=== PATIENT | male | born 1945 | race Caucasian/White ===

== ENCOUNTER 2017-10-29 09:14 | Emergency (ER) | payer OTHER ==
[~2017-10-29] VITALS: Ht 170.2 cm; Wt 82.0 kg
[~2017-10-29 09:14] MED LIST: ACET-1600 PO; ACET-1757 PO; ACET325T14 PO; ACIDOPHILUS PROB1 MG PO; ALLO100T30 PO; ALLO300T PO; AMOX1TAB61 PO; ATOR20TA9 PO; CEFD300C37 PO; CEFU500T PO; CELE200C PO; CIPR500T3 PO; CITA10TA8 PO; CITA20TA5 PO; COLC0.6T37 PO; CYAN1TAB29 PO; FAMO-79 PO; FAMO20TA7 PO; FERR160T5 PO; FERR325T18 PO; FINA5TAB4 PO; FURO-93 PO; FURO40TA6 PO; GABA300C10 PO; GABA600T PO; GABA600T2 PO; GLUC1CAP18 PO; HYDR-3240 PO; LEVO150T5 PO; LEVO50TA5 PO; LEVO750T26 PO; LEVO75TA5 PO; LEVOTHYROXINE PO; LISI1TAB7 PO; MAGN64TA9 PO; METH1TAB21 PO; METH4TAB2 PO; METR500T PO; NAPR220C2 PO; ONDA4TAB10 PO; OXYC10TA6 PO; OXYC5CAP2 PO; PANT40TA5 PO; PRAM0.12 PO; PRED10TA PO; PRED2.5T PO; PRED20TA PO; PRED5TAB PO; SENN1TAB7 PO; SODI650T PO; SULF1TAB23 PO; TAMO20TA PO; TAMS-11 PO; TAMS0.4C2 PO; WARF2TAB7 PO; Will bring list DOS
[2017-10-29] MEDS ORDERED: ONDANSETRON 2MG/ML, 2ML IVPush ONE (10:30)
[2017-10-29] MEDS ORDERED: HYDROmorphone 1 MG/ML, 1ML IVPush PRN (10:30)
[2017-10-29] MEDS ORDERED: ONDANSETRON 2MG/ML, 2ML ONE (10:30)
[2017-10-29] MEDS ORDERED: LORazepam 2 MG/ML, 1ML IVPush PRN (10:30)
[2017-10-29] MEDS ORDERED: HYDROmorphone 1 MG/ML, 1ML ONE (10:30)
[2017-10-29] MEDS ORDERED: LORazepam 2 MG/ML, 1ML ONE (10:30)
[2017-10-29 14:28] VITALS: BP 132/65
== END 2017-10-29 15:17 | disposition home or self-care (01) ==
LOC: ED 14:20
DX: M54.16 Radiculopathy, lumbar region (principal); M25.551 Pain in right hip; E78.00 Pure hypercholesterolemia, unspecified; M19.90 Unspecified osteoarthritis, unspecified site; N19 Unspecified kidney failure; E07.9 Disorder of thyroid, unspecified; Z86.718 Personal history of other venous thrombosis and embolism
CPT/HCPCS: 72148; 73552; 96374; 96375; 99284; J1170; J2060; J2405

== ENCOUNTER 2018-05-20 13:03 | Inpatient (IN) | payer OTHER ==
[~2018-05-20] VITALS: Ht 170.2 cm; Wt 89.2 kg
[~2018-05-20 13:03] MED LIST changes: -CITA20TA5 PO; +CITA20TA6 PO; -MAGN64TA9 PO; +MAGNESIUM DR64 MG PO; -WARF2TAB7 PO; +WARF2TAB99 PO
[2018-05-20] MEDS ORDERED: SODIUM CHLORIDE FLUSH 10ML SYR IVF ONE (13:30)
[2018-05-20 14:04] LABS: BASOPHILS # (AUTO) 0.05 x10^3/uL (0-0.1); BASOPHILS % (AUTO) 1 % (0-1); EOSINOPHILS # (AUTO) 0.03 x10^3/uL (0-0.4); EOSINOPHILS % (AUTO) 0 % (1-7); LYMPHOCYTES # (AUTO) 1.46 x10^3/uL (1-3.4); LYMPHOCYTES % (AUTO) 14 % (22-44); MD NO; MEAN CORPUSCULAR HEMOGLOBIN 32.5 pg (27.5-34.5); MEAN CORPUSCULAR HGB CONC 33.5 g/dL (33.2-36.2); MEAN CORPUSCULAR VOLUME 96.8 fL (81-97); MEAN PLATELET VOLUME 9.5 fL (7.4-10.4); MONOCYTES % (AUTO) 8 % (2-9); NEUTROPHILS % (AUTO) 77 % (42-75); PLATELET COUNT 160 x10^3/uL (130-400); RED BLOOD COUNT 3.24 x10^6/uL (4.38-5.82); RED CELL DISTRIBUTION WIDTH 14.3 % (9.4-14.8)
[2018-05-20 14:08] LABS: INTERNATIONAL NORMALIZED RATIO 1.04 (0.93-1.1); PROTHROMBIN TIME 10.7 Seconds (9.6-11.5)
[2018-05-20 14:13] LABS: ALANINE AMINOTRANSFERASE 19 U/L (12-78); ALBUMIN 2.8 g/dL (3.4-5.0); ANION GAP 7 mmol/L (5-15); CALCIUM 8.6 mg/dL (8.5-10.1); CHLORIDE 107 mmol/L (98-107)
[2018-05-20 14:18] LABS: ALKALINE PHOSPHATASE 52 U/L (45-117); BILIRUBIN,TOTAL 0.8 mg/dL (0.2-1.0); CREATININE 1.88 mg/dL (0.7-1.3); TOTAL PROTEIN 5.9 g/dL (6.4-8.2); TROPONIN I < 0.015 ng/mL (0.000-0.045)
[2018-05-20] MEDS ORDERED: MAALOX/HYOSCYAMINE/LIDOCAINE 45 ML BTL PO ONE (14:30)
[2018-05-20] MEDS ORDERED: FERR-51 PO (15:08)
[2018-05-20] MEDS ORDERED: PRAMIPEXOLE PO (15:08)
[2018-05-20] MEDS ORDERED: CITA40TA12 PO (15:08)
[2018-05-20] MEDS ORDERED: LEVO75TA PO (15:08)
[2018-05-20] MEDS ORDERED: ASPI-515 PO (15:08)
[2018-05-20] MEDS ORDERED: FLUD0.1T PO ×2 (15:08)
[2018-05-20] MEDS ORDERED: oxycodone PO (15:08)
[2018-05-20] MEDS ORDERED: MULT-717 PO (15:08)
[2018-05-20] MEDS ORDERED: METHENAM HIP PO (15:08)
[2018-05-20] MEDS ORDERED: vitamin d3 PO (15:10)
[2018-05-20] MEDS ORDERED: senna PO (15:10)
[2018-05-20] MEDS ORDERED: CYAN250013 PO (15:10)
[2018-05-20] MEDS ORDERED: NITROGLYCERIN 0.4 MG BOTTLE (25 TABS) SL PRN (15:30)
[2018-05-20] MEDS ORDERED: ASPIRIN 81 MG TABLET CHEW PO ONE (15:30)
[2018-05-20] MEDS ORDERED: morphine SULFATE 10 MG/ML, 1ML IVPush PRN (15:30)
[2018-05-20] MEDS ORDERED: ONDANSETRON 2MG/ML, 2ML IVPush PRN (15:30)
[2018-05-20 15:45] VITALS: BP 119/67
[2018-05-20 15:51] LABS: HIGH-SENSITIVITY CRP 4.9 mg/dL (0.02-0.30); THYROID STIMULATING HORMONE 1.51 mIU/L (0.358-3.740)
[2018-05-20 16:02] LABS: HCT (SEDRATE) 31.3 % (39.2-51.8)
[2018-05-20 16:47] LABS: TROPONIN I < 0.015 ng/mL (0.000-0.045)
[2018-05-20] MEDS ORDERED: LORazepam 2 MG/ML, 1ML IVPush PRN (18:00)
[2018-05-20] MEDS: HEPARIN 5,000 UNITS/ML, 1ML SQ SCH (20:00)
[2018-05-20] MEDS: ATORVASTATIN 80 MG TABLET PO SCH (20:00)
[2018-05-20] MEDS: FLUDROCORTISONE 0.1 MG TABLET PO SCH (20:01)
[2018-05-20] MEDS: PRAMIPEXOLE 0.125MG TABLET PO SCH (20:02)
[2018-05-20] MEDS: LEVOTHYROXINE 75 MCG TABLET PO SCH (20:02)
[2018-05-20] MEDS: GABAPENTIN 300 MG CAPSULE PO SCH (20:02)
[2018-05-20 20:05] VITALS: BP 132/72
[2018-05-20] MEDS ORDERED: ACETAMINOPHEN 325 MG TABLET PO ONE (21:30)
[2018-05-20 23:11] LABS: TROPONIN I < 0.015 ng/mL (0.000-0.045)
[2018-05-21 01:15] VITALS: BP 121/65
[2018-05-21 03:23] LABS: TROPONIN I < 0.015 ng/mL (0.000-0.045)
[2018-05-21] MEDS: HEPARIN 5,000 UNITS/ML, 1ML SQ SCH ×3 (04:07→20:13)
[2018-05-21 05:19] LABS: BASOPHILS # (AUTO) 0.01 x10^3/uL (0-0.1); BASOPHILS % (AUTO) 0 % (0-1); EOSINOPHILS # (AUTO) 0.01 x10^3/uL (0-0.4); EOSINOPHILS % (AUTO) 0 % (1-7); LYMPHOCYTES # (AUTO) 0.74 x10^3/uL (1-3.4); LYMPHOCYTES % (AUTO) 10 % (22-44); MD NO; MEAN CORPUSCULAR HEMOGLOBIN 32.2 pg (27.5-34.5); MEAN CORPUSCULAR VOLUME 97.4 fL (81-97); MEAN PLATELET VOLUME 10.1 fL (7.4-10.4); MONOCYTES # (AUTO) 0.08 x10^3/uL (0.2-0.8); MONOCYTES % (AUTO) 1 % (2-9); NEUTROPHILS # (AUTO) 6.46 x10^3/uL (1.8-6.8); NEUTROPHILS % (AUTO) 89 % (42-75); PLATELET COUNT 148 x10^3/uL (130-400); RED BLOOD COUNT 3.34 x10^6/uL (4.38-5.82); RED CELL DISTRIBUTION WIDTH 14.4 % (9.4-14.8)
[2018-05-21 05:32] LABS: CHLORIDE 108 mmol/L (98-107)
[2018-05-21 05:46] LABS: ALANINE AMINOTRANSFERASE 19 U/L (12-78); ALKALINE PHOSPHATASE 46 U/L (45-117); ANION GAP 7 mmol/L (5-15); BILIRUBIN,TOTAL 1.3 mg/dL (0.2-1.0); CALCIUM 8.7 mg/dL (8.5-10.1); CREATININE 1.62 mg/dL (0.7-1.3); THYROID STIMULATING HORMONE 0.791 mIU/L (0.358-3.740); TOTAL PROTEIN 6.4 g/dL (6.4-8.2)
[2018-05-21 07:27] VITALS: BP 138/71
[2018-05-21] MEDS: PANTOPROZOLE 40MG TABLET PO SCH (09:14)
[2018-05-21] MEDS: CITALOPRAM 20 MG TABLET PO SCH (09:15)
[2018-05-21] MEDS: ASPIRIN 81 MG TABLET EC PO SCH (09:15)
[2018-05-21] MEDS: FERROUS SULFATE 325 MG TABLET PO SCH (09:16)
[2018-05-21] MEDS: OXYcodone IR 5MG TABLET PO SCH (09:16)
[2018-05-21] MEDS: MULTIVITAMINS/MINERALS TABLET PO SCH (09:16)
[2018-05-21] MEDS: ALLOPURINOL 300 MG TABLET PO SCH (09:17)
[2018-05-21] MEDS: CYANOCOBALAMIN 1,000 MCG TABLET PO SCH (09:18)
[2018-05-21 13:08] VITALS: BP 135/69
[2018-05-21 13:38] LABS: MICROSCOPIC AUTO
[2018-05-21 13:41] LABS: CULTURE INDICATED? YES
[2018-05-21 18:55] VITALS: BP 131/71
[2018-05-21] MEDS: PRAMIPEXOLE 0.125MG TABLET PO SCH (20:13)
[2018-05-21] MEDS: LEVOTHYROXINE 75 MCG TABLET PO SCH (20:13)
[2018-05-21] MEDS: ATORVASTATIN 80 MG TABLET PO SCH (20:14)
[2018-05-21] MEDS: FLUDROCORTISONE 0.1 MG TABLET PO SCH (20:14)
[2018-05-21] MEDS: SULFAMETH./TRIMETHOPRIM DS 800MG/160MG TABLET PO SCH (20:14)
[2018-05-21] MEDS: GABAPENTIN 300 MG CAPSULE PO SCH (20:15)
[2018-05-21] MEDS ORDERED: DIPHENHYDRAMINE 25 MG CAPSULE PO ONE (20:30)
[2018-05-22 01:10] VITALS: BP 127/70
[2018-05-22] MEDS: HEPARIN 5,000 UNITS/ML, 1ML SQ SCH ×2 (04:05→11:30)
[2018-05-22 05:14] LABS: ANION GAP 8 mmol/L (5-15); CALCIUM 8.7 mg/dL (8.5-10.1); CHLORIDE 108 mmol/L (98-107); CREATININE 1.59 mg/dL (0.7-1.3)
[2018-05-22 06:55] VITALS: BP 147/88
[2018-05-22] MEDS: SULFAMETH./TRIMETHOPRIM DS 800MG/160MG TABLET PO SCH (08:48)
[2018-05-22] MEDS: CYANOCOBALAMIN 1,000 MCG TABLET PO SCH (08:48)
[2018-05-22] MEDS: PANTOPROZOLE 40MG TABLET PO SCH (08:49)
[2018-05-22] MEDS: FERROUS SULFATE 325 MG TABLET PO SCH (08:49)
[2018-05-22] MEDS: ASPIRIN 81 MG TABLET EC PO SCH (08:50)
[2018-05-22] MEDS: OXYcodone IR 5MG TABLET PO SCH (08:50)
[2018-05-22] MEDS: ALLOPURINOL 300 MG TABLET PO SCH (08:51)
[2018-05-22] MEDS: MULTIVITAMINS/MINERALS TABLET PO SCH (08:51)
[2018-05-22] MEDS: CITALOPRAM 20 MG TABLET PO SCH (08:53)
[2018-05-22] MEDS ORDERED: PRED10TA PO (10:27)
[2018-05-22] MEDS ORDERED: SULF1TAB24 PO (14:11)
== END 2018-05-22 11:50 | disposition home or self-care (01) | DRG 314 ==
LOC: ED 13:42 → EDIP 14:25 → 5SO 15:34 → DCLOUNGE 05-22 11:30
PROVIDERS: ADMIT Hospitalist; ATTEND Hospitalist
DX: I31.9 Disease of pericardium, unspecified (principal); N17.0 Acute kidney failure with tubular necrosis; E44.1 Mild protein-calorie malnutrition; N39.0 Urinary tract infection, site not specified; Q60.0 Renal agenesis, unilateral; R07.89 Other chest pain; I12.9 Hypertensive chronic kidney disease with stage 1 through stage 4 chronic kidney disease, or unspecified chronic kidney disease; N18.3 Chronic kidney disease, stage 3 (moderate); K21.9 Gastro-esophageal reflux disease without esophagitis; G25.81 Restless legs syndrome; E03.9 Hypothyroidism, unspecified; E66.9 Obesity, unspecified; E78.00 Pure hypercholesterolemia, unspecified; M19.90 Unspecified osteoarthritis, unspecified site; N40.0 Benign prostatic hyperplasia without lower urinary tract symptoms; Z79.82 Long term (current) use of aspirin; Z79.899 Other long term (current) drug therapy; Z82.49 Family history of ischemic heart disease and other diseases of the circulatory system; Z85.3 Personal history of malignant neoplasm of breast; Z86.718 Personal history of other venous thrombosis and embolism; Z86.73 Personal history of transient ischemic attack (TIA), and cerebral infarction without residual deficits; Z87.891 Personal history of nicotine dependence; Z90.10 Acquired absence of unspecified breast and nipple; G89.29 Other chronic pain; F32.9 Major depressive disorder, single episode, unspecified; D64.9 Anemia, unspecified; Z68.30 Body mass index [BMI] 30.0-30.9, adult
CPT/HCPCS: 36415; 71045; 78582; 80048; 80053; 81001; 83880; 84443; 84484; 85025; 85379; 85610; 85651; 86141; 87040; 87070; 87077; 87086; 87147; 87186; 87205; 93005; 93306; 93970; 99285; J1644; A9540; A9558; C9898; J7512; Q0163

== ENCOUNTER 2018-06-17 08:41 | Inpatient (IN) | payer OTHER ==
[~2018-06-17] VITALS: Ht 167.6 cm; Wt 98.5 kg
[~2018-06-17 08:41] MED LIST changes: +ASPI-515 PO; +CITA40TA12 PO; +CYAN250013 PO; +FERR-51 PO; +FLUD0.1T PO; +LEVO75TA PO; +METHENAM HIP PO; +MULT-717 PO; +PRAMIPEXOLE PO; +SULF1TAB24 PO; +oxycodone PO; +senna PO; +vitamin d3 PO
[2018-06-17] MEDS ORDERED: ACETAMINOPHEN 500 MG TABLET PO ONE (09:30)
[2018-06-17] MEDS ORDERED: SODIUM CHLORIDE 0.9% 1,000ML IVBOLUS ONE ×3 (09:30→11:00)
[2018-06-17] MEDS ORDERED: SODIUM CHLORIDE FLUSH 10ML SYR IVF ONE (09:30)
[2018-06-17] MEDS ORDERED: ACETAMINOPHEN 500 MG TABLET ONE ×2 (09:35)
[2018-06-17 09:40] LABS: BASOPHILS # (AUTO) 0.08 x10^3/uL (0-0.1); BASOPHILS % (AUTO) 1 % (0-1); EOSINOPHILS % (AUTO) 0 % (1-7); LYMPHOCYTES # (AUTO) 1.37 x10^3/uL (1-3.4); LYMPHOCYTES % (AUTO) 11 % (22-44); MD NO; MEAN CORPUSCULAR HEMOGLOBIN 32.2 pg (27.5-34.5); MEAN CORPUSCULAR HGB CONC 33.4 g/dL (33.2-36.2); MEAN CORPUSCULAR VOLUME 96.4 fL (81-97); MEAN PLATELET VOLUME 9.5 fL (7.4-10.4); MONOCYTES # (AUTO) 0.98 x10^3/uL (0.2-0.8); MONOCYTES % (AUTO) 8 % (2-9); NEUTROPHILS # (AUTO) 9.57 x10^3/uL (1.8-6.8); NEUTROPHILS % (AUTO) 80 % (42-75); PLATELET COUNT 122 x10^3/uL (130-400); RED BLOOD COUNT 3.47 x10^6/uL (4.38-5.82); RED CELL DISTRIBUTION WIDTH 15.3 % (9.4-14.8)
[2018-06-17 09:48] LABS: ANION GAP 8 mmol/L (5-15); CALCIUM 8.7 mg/dL (8.5-10.1); CHLORIDE 106 mmol/L (98-107)
[2018-06-17 09:51] LABS: ALANINE AMINOTRANSFERASE 26 U/L (12-78); ALKALINE PHOSPHATASE 43 U/L (45-117); BILIRUBIN,TOTAL 0.9 mg/dL (0.2-1.0); CREATININE 2.81 mg/dL (0.7-1.3); INTERNATIONAL NORMALIZED RATIO 1.03 (0.93-1.1); PROTHROMBIN TIME 10.7 Seconds (9.6-11.5)
[2018-06-17 10:28] LABS: MICROSCOPIC AUTO
[2018-06-17 10:36] LABS: CULTURE INDICATED? YES
[2018-06-17] MEDS ORDERED: CEFTRIAXONE 2 GM in SODIUM CHLORIDE 0.9% 50 ML IV SCH (11:00)
[2018-06-17] MEDS ORDERED: CEFTRIAXONE PMX 2GM/50ML 50 ML ONE (11:03)
[2018-06-17] MEDS ORDERED: NOREPINEPHRINE 4 MG in SODIUM CHLORIDE 0.9% 246 ML IV PRN ×2 (11:30→13:30)
[2018-06-17] MEDS ORDERED: ALLO300T PO (11:50)
[2018-06-17] MEDS ORDERED: GABA300C10 PO (11:50)
[2018-06-17] MEDS ORDERED: CITA40TA5 PO (11:50)
[2018-06-17 11:56] LABS: TROPONIN I 0.147 ng/mL (0.000-0.045)
[2018-06-17] MEDS ORDERED: BISACODYL 10 MG SUPP PR PRN (12:00)
[2018-06-17] MEDS: FAMOTIDINE 20 MG TABLET PO SCH (12:00)
[2018-06-17] MEDS ORDERED: DOCUSATE 100 MG CAPSULE PO PRN (12:00)
[2018-06-17] MEDS ORDERED: POLYETHYLENE GLYCOL 17 GM PACKET PO PRN (12:00)
[2018-06-17] MEDS: MULTIVITAMINS/MINERALS TABLET PO SCH (12:30)
[2018-06-17] MEDS: FLUDROCORTISONE 0.1 MG TABLET PO SCH ×2 (12:30→20:55)
[2018-06-17] MEDS: SODIUM CHLORIDE 0.9% 1,000 ML IV SCH ×2 (12:40→23:51)
[2018-06-17] MEDS: FERROUS SULFATE 325 MG TABLET PO SCH (13:00)
[2018-06-17] MEDS ORDERED: VASOPRESSIN 100 UNIT in SODIUM CHLORIDE 0.9% 495 ML IV PRN (13:30)
[2018-06-17] MEDS: HEPARIN 5,000 UNITS/ML, 1ML SQ SCH ×2 (15:00→20:56)
[2018-06-17] MEDS: ASPIRIN 81 MG TABLET EC PO SCH (15:02)
[2018-06-17 15:15] LABS: TROPONIN I 0.299 ng/mL (0.000-0.045)
[2018-06-17] MEDS: PRAMIPEXOLE 0.125MG TABLET PO SCH (20:55)
[2018-06-17] MEDS: GABAPENTIN 300 MG CAPSULE PO SCH (20:56)
[2018-06-17] MEDS: ATORVASTATIN 20 MG TABLET PO SCH (20:56)
[2018-06-17] MEDS: LEVOTHYROXINE 75 MCG TABLET PO SCH (20:56)
[2018-06-17 21:10] LABS: TROPONIN I 0.237 ng/mL (0.000-0.045)
[2018-06-17] MEDS: CEFTRIAXONE 2 GM in SODIUM CHLORIDE 0.9% 50 ML IV SCH (23:51)
[2018-06-18] MEDS: ACETAMINOPHEN 325 MG TABLET PO PRN ×2 (01:39→08:09)
[2018-06-18 03:05] LABS: MEAN CORPUSCULAR HEMOGLOBIN 32.8 pg (27.5-34.5); MEAN CORPUSCULAR HGB CONC 34.1 g/dL (33.2-36.2); MEAN CORPUSCULAR VOLUME 96.3 fL (81-97); RED BLOOD COUNT 2.86 x10^6/uL (4.38-5.82); RED CELL DISTRIBUTION WIDTH 15.3 % (9.4-14.8)
[2018-06-18 03:16] LABS: ALANINE AMINOTRANSFERASE 44 U/L (12-78); ALBUMIN 2.3 g/dL (3.4-5.0); ANION GAP 7 mmol/L (5-15); CALCIUM 8.1 mg/dL (8.5-10.1); CHLORIDE 113 mmol/L (98-107); CREATININE 2.16 mg/dL (0.7-1.3); TROPONIN I 0.302 ng/mL (0.000-0.045)
[2018-06-18 03:18] LABS: ALKALINE PHOSPHATASE 34 U/L (45-117); BILIRUBIN,TOTAL 0.5 mg/dL (0.2-1.0); TOTAL PROTEIN 5.2 g/dL (6.4-8.2)
[2018-06-18 03:34] LABS: BASOPHILS # (AUTO) 0.02 x10^3/uL (0-0.1); BASOPHILS % (AUTO) 0 % (0-1); EOSINOPHILS # (AUTO) 0.01 x10^3/uL (0-0.4); EOSINOPHILS % (AUTO) 0 % (1-7); LYMPHOCYTES # (AUTO) 1.11 x10^3/uL (1-3.4); LYMPHOCYTES % (AUTO) 14 % (22-44); MD SCAN; MEAN PLATELET VOLUME 10.3 fL (7.4-10.4); MONOCYTES # (AUTO) 0.54 x10^3/uL (0.2-0.8); MONOCYTES % (AUTO) 7 % (2-9); NEUTROPHILS # (AUTO) 6.31 x10^3/uL (1.8-6.8); NEUTROPHILS % (AUTO) 79 % (42-75); PLATELET COUNT 95 x10^3/uL (130-400)
[2018-06-18] MEDS ORDERED: SODIUM PHOSPHATE 20 MMOL in SODIUM CHLORIDE 0.9% 500 ML IV ONE (05:30)
[2018-06-18] MEDS: HEPARIN 5,000 UNITS/ML, 1ML SQ SCH ×3 (05:34→20:21)
[2018-06-18 08:00] VITALS: BP 125/60
[2018-06-18] MEDS: FLUDROCORTISONE 0.1 MG TABLET PO SCH ×2 (08:04→20:22)
[2018-06-18] MEDS: MULTIVITAMINS/MINERALS TABLET PO SCH (08:04)
[2018-06-18] MEDS: FAMOTIDINE 20 MG TABLET PO SCH (08:05)
[2018-06-18] MEDS: FERROUS SULFATE 325 MG TABLET PO SCH (08:05)
[2018-06-18] MEDS: CITALOPRAM 20 MG TABLET PO SCH (08:05)
[2018-06-18] MEDS: ASPIRIN 81 MG TABLET EC PO SCH (08:05)
[2018-06-18] MEDS: CYANOCOBALAMIN 1,000 MCG TABLET PO SCH (08:05)
[2018-06-18] MEDS: SODIUM CHLORIDE 0.9% 1,000 ML IV SCH ×2 (08:07→17:52)
[2018-06-18] MEDS: OXYcodone IR 5MG TABLET PO PRN ×2 (09:01→20:22)
[2018-06-18 14:00] VITALS: BP 127/56
[2018-06-18 16:23] VITALS: BP 113/61
[2018-06-18 19:37] VITALS: BP 122/65
[2018-06-18] MEDS: ATORVASTATIN 20 MG TABLET PO SCH (20:22)
[2018-06-18] MEDS: GABAPENTIN 300 MG CAPSULE PO SCH (20:22)
[2018-06-18] MEDS: PRAMIPEXOLE 0.125MG TABLET PO SCH (20:22)
[2018-06-18] MEDS: LEVOTHYROXINE 75 MCG TABLET PO SCH (20:22)
[2018-06-18] MEDS: CEFTRIAXONE 2 GM in SODIUM CHLORIDE 0.9% 50 ML IV SCH (23:09)
[2018-06-19 01:29] VITALS: BP 120/61
[2018-06-19] MEDS: SODIUM CHLORIDE 0.9% 1,000 ML IV SCH ×2 (03:17→20:11)
[2018-06-19] MEDS: HEPARIN 5,000 UNITS/ML, 1ML SQ SCH ×3 (03:21→20:12)
[2018-06-19 05:09] LABS: BASOPHILS # (AUTO) 0.03 x10^3/uL (0-0.1); BASOPHILS % (AUTO) 0 % (0-1); EOSINOPHILS # (AUTO) 0.04 x10^3/uL (0-0.4); EOSINOPHILS % (AUTO) 1 % (1-7); LYMPHOCYTES # (AUTO) 1.32 x10^3/uL (1-3.4); LYMPHOCYTES % (AUTO) 17 % (22-44); MD NO; MEAN CORPUSCULAR HGB CONC 34.1 g/dL (33.2-36.2); MEAN CORPUSCULAR VOLUME 96.7 fL (81-97); MEAN PLATELET VOLUME 10.1 fL (7.4-10.4); MONOCYTES # (AUTO) 0.52 x10^3/uL (0.2-0.8); MONOCYTES % (AUTO) 7 % (2-9); NEUTROPHILS # (AUTO) 5.79 x10^3/uL (1.8-6.8); NEUTROPHILS % (AUTO) 75 % (42-75); PLATELET COUNT 110 x10^3/uL (130-400); RED CELL DISTRIBUTION WIDTH 15.3 % (9.4-14.8)
[2018-06-19 05:19] LABS: CHLORIDE 114 mmol/L (98-107)
[2018-06-19 05:26] LABS: ALANINE AMINOTRANSFERASE 31 U/L (12-78); ALBUMIN 2.2 g/dL (3.4-5.0); ALKALINE PHOSPHATASE 34 U/L (45-117); ANION GAP 8 mmol/L (5-15); BILIRUBIN,TOTAL 0.6 mg/dL (0.2-1.0); CALCIUM 8.1 mg/dL (8.5-10.1); CREATININE 1.47 mg/dL (0.7-1.3); TOTAL PROTEIN 5.4 g/dL (6.4-8.2)
[2018-06-19 07:45] VITALS: BP 164/73
[2018-06-19] MEDS: CITALOPRAM 20 MG TABLET PO SCH (09:18)
[2018-06-19] MEDS ORDERED: REGADENOSON 0.4 MG/5 ML SYRINGE ONE (11:22)
[2018-06-19] MEDS: OXYcodone IR 5MG TABLET PO PRN (12:15)
[2018-06-19] MEDS: CYANOCOBALAMIN 1,000 MCG TABLET PO SCH (12:16)
[2018-06-19] MEDS: ASPIRIN 81 MG TABLET EC PO SCH (12:16)
[2018-06-19] MEDS: MULTIVITAMINS/MINERALS TABLET PO SCH (12:16)
[2018-06-19] MEDS: FERROUS SULFATE 325 MG TABLET PO SCH (12:16)
[2018-06-19] MEDS: FAMOTIDINE 20 MG TABLET PO SCH (12:16)
[2018-06-19 13:00] VITALS: BP 126/66
[2018-06-19] MEDS: FLUDROCORTISONE 0.1 MG TABLET PO SCH ×2 (14:25→20:12)
[2018-06-19] MEDS: ACETAMINOPHEN 325 MG TABLET PO PRN ×2 (14:25→23:02)
[2018-06-19 19:20] VITALS: BP 132/55
[2018-06-19] MEDS: ATORVASTATIN 20 MG TABLET PO SCH (20:12)
[2018-06-19] MEDS: PRAMIPEXOLE 0.125MG TABLET PO SCH (20:12)
[2018-06-19] MEDS: GABAPENTIN 300 MG CAPSULE PO SCH (20:12)
[2018-06-19] MEDS: LEVOTHYROXINE 75 MCG TABLET PO SCH (20:13)
[2018-06-19] MEDS: CEFTRIAXONE 2 GM in SODIUM CHLORIDE 0.9% 50 ML IV SCH (23:02)
[2018-06-20 00:24] VITALS: BP 115/55
[2018-06-20] MEDS: OXYcodone IR 5MG TABLET PO PRN ×3 (01:23→20:59)
[2018-06-20] MEDS: HEPARIN 5,000 UNITS/ML, 1ML SQ SCH ×3 (04:13→20:58)
[2018-06-20 05:31] LABS: BASOPHILS # (AUTO) 0.01 x10^3/uL (0-0.1); BASOPHILS % (AUTO) 0 % (0-1); EOSINOPHILS # (AUTO) 0.05 x10^3/uL (0-0.4); EOSINOPHILS % (AUTO) 1 % (1-7); LYMPHOCYTES # (AUTO) 1.21 x10^3/uL (1-3.4); LYMPHOCYTES % (AUTO) 23 % (22-44); MD NO; MEAN CORPUSCULAR HEMOGLOBIN 31.6 pg (27.5-34.5); MEAN CORPUSCULAR VOLUME 95.8 fL (81-97); MONOCYTES # (AUTO) 0.37 x10^3/uL (0.2-0.8); MONOCYTES % (AUTO) 7 % (2-9); NEUTROPHILS % (AUTO) 69 % (42-75); PLATELET COUNT 125 x10^3/uL (130-400); RED BLOOD COUNT 2.88 x10^6/uL (4.38-5.82); RED CELL DISTRIBUTION WIDTH 15.3 % (9.4-14.8)
[2018-06-20 05:35] LABS: ANION GAP 10 mmol/L (5-15); CHLORIDE 114 mmol/L (98-107)
[2018-06-20 05:36] LABS: CREATININE 1.16 mg/dL (0.7-1.3)
[2018-06-20 07:00] VITALS: BP 166/68
[2018-06-20] MEDS: SODIUM CHLORIDE 0.9% 1,000 ML IV SCH ×2 (07:13→17:00)
[2018-06-20] MEDS: ASPIRIN 81 MG TABLET EC PO SCH (09:07)
[2018-06-20] MEDS: MULTIVITAMINS/MINERALS TABLET PO SCH (09:07)
[2018-06-20] MEDS: FAMOTIDINE 20 MG TABLET PO SCH ×3 (09:07→20:59)
[2018-06-20] MEDS: CITALOPRAM 20 MG TABLET PO SCH (09:08)
[2018-06-20] MEDS: CYANOCOBALAMIN 1,000 MCG TABLET PO SCH (09:08)
[2018-06-20] MEDS: FERROUS SULFATE 325 MG TABLET PO SCH (09:08)
[2018-06-20] MEDS: ACETAMINOPHEN 325 MG TABLET PO PRN ×2 (09:15→21:01)
[2018-06-20] MEDS: FLUDROCORTISONE 0.1 MG TABLET PO SCH ×2 (09:15→20:58)
[2018-06-20 14:42] VITALS: BP 154/71
[2018-06-20 20:00] VITALS: BP 134/70
[2018-06-20] MEDS: PRAMIPEXOLE 0.125MG TABLET PO SCH (20:58)
[2018-06-20] MEDS: GABAPENTIN 300 MG CAPSULE PO SCH (20:59)
[2018-06-20] MEDS: ATORVASTATIN 20 MG TABLET PO SCH (20:59)
[2018-06-20] MEDS: CEFTRIAXONE 2 GM in SODIUM CHLORIDE 0.9% 50 ML IV SCH (23:19)
[2018-06-21 00:58] VITALS: BP 130/53
[2018-06-21 05:25] LABS: BASOPHILS # (AUTO) 0.02 x10^3/uL (0-0.1); BASOPHILS % (AUTO) 0 % (0-1); EOSINOPHILS # (AUTO) 0.21 x10^3/uL (0-0.4); EOSINOPHILS % (AUTO) 4 % (1-7); LYMPHOCYTES % (AUTO) 22 % (22-44); MD NO; MEAN CORPUSCULAR HEMOGLOBIN 32.9 pg (27.5-34.5); MEAN CORPUSCULAR HGB CONC 34.3 g/dL (33.2-36.2); MEAN CORPUSCULAR VOLUME 95.7 fL (81-97); MEAN PLATELET VOLUME 9.6 fL (7.4-10.4); MONOCYTES # (AUTO) 0.37 x10^3/uL (0.2-0.8); MONOCYTES % (AUTO) 6 % (2-9); NEUTROPHILS # (AUTO) 4.09 x10^3/uL (1.8-6.8); NEUTROPHILS % (AUTO) 68 % (42-75); PLATELET COUNT 143 x10^3/uL (130-400); RED BLOOD COUNT 2.74 x10^6/uL (4.38-5.82); RED CELL DISTRIBUTION WIDTH 15.3 % (9.4-14.8)
[2018-06-21] MEDS: SODIUM CHLORIDE 0.9% 1,000 ML IV SCH (05:26)
[2018-06-21] MEDS: HEPARIN 5,000 UNITS/ML, 1ML SQ SCH ×3 (05:26→19:38)
[2018-06-21] MEDS: LEVOTHYROXINE 75 MCG TABLET PO SCH (05:31)
[2018-06-21 05:41] LABS: ANION GAP 9 mmol/L (5-15); CALCIUM 7.7 mg/dL (8.5-10.1); CHLORIDE 113 mmol/L (98-107)
[2018-06-21 05:44] LABS: CREATININE 1.11 mg/dL (0.7-1.3)
[2018-06-21 08:34] VITALS: BP 161/70
[2018-06-21] MEDS: FERROUS SULFATE 325 MG TABLET PO SCH (09:10)
[2018-06-21] MEDS: ASPIRIN 81 MG TABLET EC PO SCH (09:10)
[2018-06-21] MEDS: CYANOCOBALAMIN 1,000 MCG TABLET PO SCH (09:10)
[2018-06-21] MEDS: MULTIVITAMINS/MINERALS TABLET PO SCH (09:10)
[2018-06-21] MEDS: FLUDROCORTISONE 0.1 MG TABLET PO SCH ×2 (09:10→19:37)
[2018-06-21] MEDS: CITALOPRAM 20 MG TABLET PO SCH (09:10)
[2018-06-21] MEDS: FAMOTIDINE 20 MG TABLET PO SCH ×2 (09:10→19:37)
[2018-06-21] MEDS: OXYcodone IR 5MG TABLET PO PRN (12:36)
[2018-06-21] MEDS: ACETAMINOPHEN 325 MG TABLET PO PRN ×3 (12:36→21:21)
[2018-06-21 14:14] VITALS: BP 145/66
[2018-06-21 19:30] VITALS: BP 135/55
[2018-06-21] MEDS: PRAMIPEXOLE 0.125MG TABLET PO SCH (19:37)
[2018-06-21] MEDS: ATORVASTATIN 20 MG TABLET PO SCH (19:37)
[2018-06-21] MEDS: GABAPENTIN 300 MG CAPSULE PO SCH (19:37)
[2018-06-21] MEDS: ONDANSETRON 2MG/ML, 2ML IVPush PRN (19:38)
[2018-06-21] MEDS ORDERED: DIPHENHYDRAMINE 25 MG CAPSULE PO PRN (21:30)
[2018-06-21] MEDS: CEFTRIAXONE 2 GM in SODIUM CHLORIDE 0.9% 50 ML IV SCH (23:11)
[2018-06-22 00:35] VITALS: BP 144/67
[2018-06-22] MEDS: ACETAMINOPHEN 325 MG TABLET PO PRN ×5 (01:09→21:28)
[2018-06-22] MEDS: OXYcodone IR 5MG TABLET PO PRN ×2 (01:09→13:39)
[2018-06-22] MEDS: HEPARIN 5,000 UNITS/ML, 1ML SQ SCH ×3 (05:09→22:26)
[2018-06-22] MEDS: LEVOTHYROXINE 75 MCG TABLET PO SCH (05:09)
[2018-06-22 05:33] LABS: CHLORIDE 113 mmol/L (98-107)
[2018-06-22 05:41] LABS: MEAN CORPUSCULAR HEMOGLOBIN 32.3 pg (27.5-34.5); MEAN CORPUSCULAR HGB CONC 33.8 g/dL (33.2-36.2); MEAN CORPUSCULAR VOLUME 95.7 fL (81-97); MEAN PLATELET VOLUME 9.2 fL (7.4-10.4); PLATELET COUNT 158 x10^3/uL (130-400); RED BLOOD COUNT 2.83 x10^6/uL (4.38-5.82)
[2018-06-22 05:48] LABS: ANION GAP 8 mmol/L (5-15); CALCIUM 7.8 mg/dL (8.5-10.1); CREATININE 1.26 mg/dL (0.7-1.3)
[2018-06-22 06:11] LABS: RED CELL DISTRIBUTION WIDTH 15.2 % (9.4-14.8)
[2018-06-22 06:12] LABS: BASOPHILS # (AUTO) 0.01 x10^3/uL (0-0.1); BASOPHILS % (AUTO) 0 % (0-1); EOSINOPHILS % (AUTO) 2 % (1-7); LYMPHOCYTES % (AUTO) 18 % (22-44); MD SCAN; MONOCYTES # (AUTO) 0.49 x10^3/uL (0.2-0.8); MONOCYTES % (AUTO) 6 % (2-9); NEUTROPHILS # (AUTO) 6.28 x10^3/uL (1.8-6.8); NEUTROPHILS % (AUTO) 74 % (42-75)
[2018-06-22 06:28] LABS: HCT (SEDRATE) 27.1 % (39.2-51.8)
[2018-06-22] MEDS: ASPIRIN 81 MG TABLET EC PO SCH (08:10)
[2018-06-22] MEDS: FAMOTIDINE 20 MG TABLET PO SCH ×2 (08:10→21:29)
[2018-06-22] MEDS: FERROUS SULFATE 325 MG TABLET PO SCH (08:11)
[2018-06-22] MEDS: CITALOPRAM 20 MG TABLET PO SCH (08:11)
[2018-06-22] MEDS: CYANOCOBALAMIN 1,000 MCG TABLET PO SCH (08:11)
[2018-06-22] MEDS: MULTIVITAMINS/MINERALS TABLET PO SCH (08:11)
[2018-06-22] MEDS: FLUDROCORTISONE 0.1 MG TABLET PO SCH ×2 (08:11→21:29)
[2018-06-22 08:53] VITALS: BP 147/68
[2018-06-22 13:05] VITALS: BP 152/68
[2018-06-22 19:49] VITALS: BP 157/74
[2018-06-22] MEDS: PRAMIPEXOLE 0.125MG TABLET PO SCH (21:28)
[2018-06-22] MEDS: GABAPENTIN 300 MG CAPSULE PO SCH (21:29)
[2018-06-22] MEDS: ATORVASTATIN 20 MG TABLET PO SCH (21:29)
[2018-06-22] MEDS: DIPHENHYDRAMINE 25 MG CAPSULE PO PRN (22:26)
[2018-06-22] MEDS ORDERED: DIPHENHYDRAMINE 25 MG CAPSULE PO PRN (22:30)
[2018-06-22] MEDS: CEFTRIAXONE 2 GM in SODIUM CHLORIDE 0.9% 50 ML IV SCH (23:07)
[2018-06-23 05:54] LABS: CHLORIDE 111 mmol/L (98-107)
[2018-06-23 05:56] LABS: BASOPHILS # (AUTO) 0.01 x10^3/uL (0-0.1); BASOPHILS % (AUTO) 0 % (0-1); EOSINOPHILS # (AUTO) 0.25 x10^3/uL (0-0.4); EOSINOPHILS % (AUTO) 3 % (1-7); LYMPHOCYTES # (AUTO) 1.73 x10^3/uL (1-3.4); LYMPHOCYTES % (AUTO) 17 % (22-44); MD NO; MEAN CORPUSCULAR HEMOGLOBIN 32.5 pg (27.5-34.5); MEAN CORPUSCULAR VOLUME 95.4 fL (81-97); MEAN PLATELET VOLUME 8.7 fL (7.4-10.4); MONOCYTES # (AUTO) 0.58 x10^3/uL (0.2-0.8); MONOCYTES % (AUTO) 6 % (2-9); NEUTROPHILS # (AUTO) 7.46 x10^3/uL (1.8-6.8); NEUTROPHILS % (AUTO) 74 % (42-75); PLATELET COUNT 189 x10^3/uL (130-400); RED BLOOD COUNT 2.82 x10^6/uL (4.38-5.82); RED CELL DISTRIBUTION WIDTH 15.6 % (9.4-14.8)
[2018-06-23 06:19] LABS: ANION GAP 10 mmol/L (5-15); CREATININE 1.25 mg/dL (0.7-1.3)
[2018-06-23] MEDS: LEVOTHYROXINE 75 MCG TABLET PO SCH (06:28)
[2018-06-23] MEDS: HEPARIN 5,000 UNITS/ML, 1ML SQ SCH ×3 (06:28→20:38)
[2018-06-23] MEDS: ACETAMINOPHEN 325 MG TABLET PO PRN ×3 (06:30→21:51)
[2018-06-23 06:32] VITALS: BP 129/60
[2018-06-23 07:18] VITALS: BP 131/72
[2018-06-23] MEDS ORDERED: POTASSIUM CHLORIDE 20 MEQ TAB.ER.PRT PO ONE (07:30)
[2018-06-23] MEDS ORDERED: POTASSIUM CHLORIDE 40 MEQ in SODIUM CHLORIDE 0.9% 500 ML IV ONE (07:30)
[2018-06-23] MEDS: FERROUS SULFATE 325 MG TABLET PO SCH (08:36)
[2018-06-23] MEDS: FAMOTIDINE 20 MG TABLET PO SCH ×2 (08:36→20:38)
[2018-06-23] MEDS: FLUDROCORTISONE 0.1 MG TABLET PO SCH ×2 (08:36→20:38)
[2018-06-23] MEDS: ASPIRIN 81 MG TABLET EC PO SCH (08:36)
[2018-06-23] MEDS: MULTIVITAMINS/MINERALS TABLET PO SCH (08:36)
[2018-06-23] MEDS: CYANOCOBALAMIN 1,000 MCG TABLET PO SCH (08:36)
[2018-06-23] MEDS: CITALOPRAM 20 MG TABLET PO SCH (08:36)
[2018-06-23] MEDS ORDERED: MAGNESIUM SULFATE PMX 2GM/50ML 50 ML IV ONE (10:00)
[2018-06-23 12:23] VITALS: BP 148/73
[2018-06-23] MEDS: DIPHENHYDRAMINE 25 MG CAPSULE PO PRN ×2 (16:13→23:23)
[2018-06-23] MEDS ORDERED: GABAPENTIN 300 MG CAPSULE PO ONE (17:00)
[2018-06-23] MEDS: ONDANSETRON 2MG/ML, 2ML IVPush PRN (18:20)
[2018-06-23 20:00] VITALS: BP 143/66
[2018-06-23] MEDS: ATORVASTATIN 20 MG TABLET PO SCH (20:37)
[2018-06-23] MEDS: PRAMIPEXOLE 0.125MG TABLET PO SCH (20:37)
[2018-06-23] MEDS: GABAPENTIN 300 MG CAPSULE PO SCH (20:37)
[2018-06-23] MEDS: CEFTRIAXONE 2 GM in SODIUM CHLORIDE 0.9% 50 ML IV SCH (23:22)
[2018-06-23] MEDS: OXYcodone IR 5MG TABLET PO PRN (23:23)
[2018-06-24 00:38] VITALS: BP 125/59
[2018-06-24] MEDS: HEPARIN 5,000 UNITS/ML, 1ML SQ SCH (05:01)
[2018-06-24] MEDS: LEVOTHYROXINE 75 MCG TABLET PO SCH (05:01)
[2018-06-24 05:50] LABS: ALBUMIN 2.3 g/dL (3.4-5.0); ANION GAP 8 mmol/L (5-15); CHLORIDE 112 mmol/L (98-107)
[2018-06-24 06:56] VITALS: BP 134/68
[2018-06-24] MEDS: MULTIVITAMINS/MINERALS TABLET PO SCH (08:36)
[2018-06-24] MEDS: CYANOCOBALAMIN 1,000 MCG TABLET PO SCH (08:36)
[2018-06-24] MEDS: CITALOPRAM 20 MG TABLET PO SCH (08:36)
[2018-06-24] MEDS: ASPIRIN 81 MG TABLET EC PO SCH (08:36)
[2018-06-24] MEDS: FERROUS SULFATE 325 MG TABLET PO SCH (08:36)
[2018-06-24] MEDS: FAMOTIDINE 20 MG TABLET PO SCH (08:36)
[2018-06-24] MEDS: FLUDROCORTISONE 0.1 MG TABLET PO SCH (08:36)
[2018-06-24] MEDS ORDERED: NITR100C56 PO (08:43)
[2018-06-24] MEDS ORDERED: LEVO75TA PO (08:43)
[2018-06-24] MEDS ORDERED: POTASSIUM CHLORIDE 20 MEQ TAB.ER.PRT PO ONE (09:00)
[2018-06-24] MEDS: OXYcodone IR 5MG TABLET PO PRN (10:32)
[2018-06-24] MEDS: ACETAMINOPHEN 325 MG TABLET PO PRN (10:32)
[2018-06-24] MEDS ORDERED: CEFTRIAXONE 2 GM in SODIUM CHLORIDE 0.9% 50 ML IV ONE (11:30)
== END 2018-06-24 12:10 | disposition home or self-care (01) | DRG 871 ==
LOC: ED 11:25 → CCU 11:26 → ED 12:10 → 5SO 06-18 16:10 → 4WST 06-21 13:19
PROVIDERS: ADMIT Hospitalist; ATTEND Hospitalist
PROC: 0T9B70Z Drainage of Bladder with Drainage Device, Via Natural or Artificial Opening (ICD-10-PCS; principal; 2018-06-17)
PROC: 02HV33Z Insertion of Infusion Device into Superior Vena Cava, Percutaneous Approach (ICD-10-PCS; 2018-06-17)
PROC: B548ZZA Ultrasonography of Superior Vena Cava, Guidance (ICD-10-PCS; 2018-06-17)
DX: A41.9 Sepsis, unspecified organism (principal); R65.21 Severe sepsis with septic shock; E43 Unspecified severe protein-calorie malnutrition; N17.0 Acute kidney failure with tubular necrosis; I24.8 Other forms of acute ischemic heart disease; I31.3 Pericardial effusion (noninflammatory); N39.0 Urinary tract infection, site not specified; Q60.0 Renal agenesis, unilateral; N18.3 Chronic kidney disease, stage 3 (moderate); D64.9 Anemia, unspecified; E03.9 Hypothyroidism, unspecified; E78.5 Hyperlipidemia, unspecified; E87.6 Hypokalemia; B96.20 Unspecified Escherichia coli [E. coli] as the cause of diseases classified elsewhere; N40.1 Benign prostatic hyperplasia with lower urinary tract symptoms; M10.9 Gout, unspecified; Z16.24 Resistance to multiple antibiotics; Z79.82 Long term (current) use of aspirin; Z82.49 Family history of ischemic heart disease and other diseases of the circulatory system; Z68.30 Body mass index [BMI] 30.0-30.9, adult; Z86.718 Personal history of other venous thrombosis and embolism; Z85.3 Personal history of malignant neoplasm of breast; Z87.440 Personal history of urinary (tract) infections; Z87.891 Personal history of nicotine dependence; Z90.11 Acquired absence of right breast and nipple; Z90.79 Acquired absence of other genital organ(s); Z82.5 Family history of asthma and other chronic lower respiratory diseases; Z90.89 Acquired absence of other organs
CPT/HCPCS: 36415; 36556; 71045; 76770; 78452; 80048; 80053; 81001; 82040; 82533; 83605; 83735; 84100; 84145; 84484; 85025; 85610; 85651; 85730; 86141; 87040; 87077; 87081; 87086; 87186; 93005; 93017; 93306; 93321; 96361; 96365; 96375; 99291; J0696; J1644; J2405; J2785; J3480; A9502; C9898; J3475; J7030; J7040; J7050; Q0163

== ENCOUNTER 2018-06-27 16:21 | Emergency (ER) | payer OTHER ==
[~2018-06-27] VITALS: Ht 172.7 cm; Wt 100.0 kg
[~2018-06-27 16:21] MED LIST changes: +CITA40TA5 PO; +NITR100C56 PO
[2018-06-27] MEDS ORDERED: ALBUTEROL SULFATE 2.5 MG/3 ML NPPB ONE (17:00)
[2018-06-27] MEDS ORDERED: SODIUM CHLORIDE FLUSH 10ML SYR IVF ONE (17:00)
[2018-06-27] MEDS ORDERED: ALBUTEROL SULFATE 2.5 MG/3 ML ONE (17:03)
[2018-06-27 17:22] LABS: ALBUMIN 2.3 g/dL (3.4-5.0); ANION GAP 12 mmol/L (5-15); CALCIUM 7.8 mg/dL (8.5-10.1); CHLORIDE 108 mmol/L (98-107)
[2018-06-27 17:29] LABS: ALANINE AMINOTRANSFERASE 28 U/L (12-78); ALKALINE PHOSPHATASE 49 U/L (45-117); BILIRUBIN,TOTAL 0.4 mg/dL (0.2-1.0); CREATININE 1.35 mg/dL (0.7-1.3); MEAN CORPUSCULAR HEMOGLOBIN 31.9 pg (27.5-34.5); MEAN CORPUSCULAR HGB CONC 33.5 g/dL (33.2-36.2); MEAN CORPUSCULAR VOLUME 95.3 fL (81-97); MEAN PLATELET VOLUME 8.4 fL (7.4-10.4); PLATELET COUNT 269 x10^3/uL (130-400); RED BLOOD COUNT 2.85 x10^6/uL (4.38-5.82); TOTAL PROTEIN 5.8 g/dL (6.4-8.2); TROPONIN I < 0.015 ng/mL (0.000-0.045)
[2018-06-27 18:02] LABS: BASOPHILS # (AUTO) 0.01 x10^3/uL (0-0.1); BASOPHILS % (AUTO) 0 % (0-1); EOSINOPHILS # (AUTO) 0.15 x10^3/uL (0-0.4); EOSINOPHILS % (AUTO) 1 % (1-7); LYMPHOCYTES # (AUTO) 0.84 x10^3/uL (1-3.4); LYMPHOCYTES % (AUTO) 5 % (22-44); MD SCAN; MONOCYTES # (AUTO) 0.64 x10^3/uL (0.2-0.8); MONOCYTES % (AUTO) 4 % (2-9); NEUTROPHILS # (AUTO) 13.95 x10^3/uL (1.8-6.8); NEUTROPHILS % (AUTO) 90 % (42-75)
[2018-06-27] MEDS ORDERED: LIDOCAINE-MPF 1%, 2ML ONE (18:41)
[2018-06-27] MEDS ORDERED: OXYcodone/APAP 10/325MG TABLET ONE (19:52)
[2018-06-27 19:56] VITALS: BP 137/66
[2018-06-27] MEDS ORDERED: OXYcodone/APAP 10/325MG TABLET PO ONE (20:00)
== END 2018-06-27 20:47 | disposition home or self-care (01) ==
LOC: ED 17:59
DX: J90 Pleural effusion, not elsewhere classified (principal); I50.9 Heart failure, unspecified; E78.5 Hyperlipidemia, unspecified; M19.90 Unspecified osteoarthritis, unspecified site; E78.00 Pure hypercholesterolemia, unspecified; E07.9 Disorder of thyroid, unspecified; Z86.73 Personal history of transient ischemic attack (TIA), and cerebral infarction without residual deficits
CPT/HCPCS: 32555; 36415; 71045; 80053; 82042; 82150; 82945; 83605; 83615; 83880; 83986; 84157; 84484; 85025; 87070; 87075; 87205; 88112; 88305; 89051; 93005; 94640; 99285; J3490; J7613

== ENCOUNTER 2018-06-28 19:35 | Inpatient (IN) | payer OTHER ==
[~2018-06-28] VITALS: Ht 170.2 cm; Wt 89.1 kg
[2018-06-28] MEDS ORDERED: SODIUM CHLORIDE FLUSH 10ML SYR IVF ONE (20:30)
[2018-06-28 20:44] LABS: MEAN CORPUSCULAR HEMOGLOBIN 31.7 pg (27.5-34.5); MEAN CORPUSCULAR HGB CONC 33.1 g/dL (33.2-36.2); MEAN CORPUSCULAR VOLUME 95.8 fL (81-97); MEAN PLATELET VOLUME 9.1 fL (7.4-10.4); PLATELET COUNT 327 x10^3/uL (130-400); RED BLOOD COUNT 3.23 x10^6/uL (4.38-5.82); RED CELL DISTRIBUTION WIDTH 15.9 % (9.4-14.8)
[2018-06-28] MEDS ORDERED: ONDANSETRON 2MG/ML, 2ML ONE (20:44)
[2018-06-28] MEDS ORDERED: MORPHINE SULFATE 4 MG/ML, 1ML ONE ×2 (20:44→23:19)
[2018-06-28 20:54] LABS: ALBUMIN 2.7 g/dL (3.4-5.0); ANION GAP 12 mmol/L (5-15); CALCIUM 8.4 mg/dL (8.5-10.1); CHLORIDE 105 mmol/L (98-107)
[2018-06-28] MEDS: MORPHINE SULFATE 4 MG/ML, 1ML IVPush PRN ×2 (20:59→23:22)
[2018-06-28 21:00] LABS: ALANINE AMINOTRANSFERASE 31 U/L (12-78); ALKALINE PHOSPHATASE 63 U/L (45-117); BILIRUBIN,TOTAL 0.5 mg/dL (0.2-1.0); CREATININE 2.07 mg/dL (0.7-1.3); TOTAL PROTEIN 6.4 g/dL (6.4-8.2)
[2018-06-28] MEDS ORDERED: ONDANSETRON 2MG/ML, 2ML IVPush ONE ×2 (21:00)
[2018-06-28 21:06] LABS: BASOPHILS # (AUTO) 0.05 x10^3/uL (0-0.1); BASOPHILS % (AUTO) 0 % (0-1); EOSINOPHILS # (AUTO) 0.08 x10^3/uL (0-0.4); EOSINOPHILS % (AUTO) 0 % (1-7); LYMPHOCYTES # (AUTO) 1.03 x10^3/uL (1-3.4); LYMPHOCYTES % (AUTO) 4 % (22-44); MD SCAN; MONOCYTES # (AUTO) 1.54 x10^3/uL (0.2-0.8); MONOCYTES % (AUTO) 6 % (2-9); NEUTROPHILS # (AUTO) 24.93 x10^3/uL (1.8-6.8); NEUTROPHILS % (AUTO) 90 % (42-75)
[2018-06-28] MEDS ORDERED: CEFTRIAXONE PMX 1GM/50ML 50 ML ONE (22:26)
[2018-06-28] MEDS ORDERED: CEFTRIAXONE 1,000 MG in SODIUM CHLORIDE 0.9% 50 ML IV ONE (22:30)
[2018-06-28 23:21] LABS: CULTURE INDICATED? YES; MICROSCOPIC INDICATED
[2018-06-28] MEDS ORDERED: SODIUM CHLORIDE 0.9% 1,000 ML IV SCH (23:24)
[2018-06-28] MEDS ORDERED: VANCOMYCIN PER PHARMACY MC PRN (23:30)
[2018-06-28] MEDS ORDERED: BISACODYL 10 MG SUPP PR PRN (23:30)
[2018-06-28] MEDS ORDERED: DOCUSATE 100 MG CAPSULE PO PRN (23:30)
[2018-06-28] MEDS ORDERED: ONDANSETRON 2MG/ML, 2ML IVPush PRN (23:30)
[2018-06-28] MEDS ORDERED: POLYETHYLENE GLYCOL 17 GM PACKET PO PRN (23:30)
[2018-06-28] MEDS ORDERED: morphine SULFATE 10 MG/ML, 1ML IVPush PRN (23:30)
[2018-06-29 00:07] LABS: HCT (SEDRATE) 30.9 % (39.2-51.8)
[2018-06-29] MEDS ORDERED: PIPERACILLIN/TAZO/PMX 3.375GM 50 ML ONE (00:20)
[2018-06-29] MEDS: PIPERACILLIN/TAZO/PMX 3.375GM 50 ML IV SCH ×5 (00:22→23:21)
[2018-06-29 00:30] LABS: TROPONIN I < 0.015 ng/mL (0.000-0.045)
[2018-06-29 02:00] VITALS: BP 143/65
[2018-06-29] MEDS ORDERED: PHARMACOKINETIC CONSULTATION MC ONE (02:00)
[2018-06-29] MEDS ORDERED: VANCOMYCIN 1,600 MG in SODIUM CHLORIDE 0.9% 250 ML IV SCH (02:00)
[2018-06-29] MEDS ORDERED: PHARMACOKINETIC MONITORING MC PRN (02:00)
[2018-06-29] MEDS: ACETAMINOPHEN 325 MG TABLET PO PRN ×4 (02:14→21:40)
[2018-06-29 06:13] LABS: MEAN CORPUSCULAR HEMOGLOBIN 30.6 pg (27.5-34.5); MEAN CORPUSCULAR HGB CONC 32.3 g/dL (33.2-36.2); MEAN CORPUSCULAR VOLUME 94.7 fL (81-97); MEAN PLATELET VOLUME 8.8 fL (7.4-10.4); PLATELET COUNT 324 x10^3/uL (130-400); RED BLOOD COUNT 2.86 x10^6/uL (4.38-5.82); RED CELL DISTRIBUTION WIDTH 15.8 % (9.4-14.8)
[2018-06-29 06:15] LABS: TROPONIN I < 0.015 ng/mL (0.000-0.045)
[2018-06-29 06:19] LABS: ALANINE AMINOTRANSFERASE 26 U/L (12-78); ALBUMIN 2.2 g/dL (3.4-5.0); ANION GAP 10 mmol/L (5-15); CALCIUM 7.7 mg/dL (8.5-10.1); CHLORIDE 107 mmol/L (98-107); CREATININE 2.28 mg/dL (0.7-1.3)
[2018-06-29 06:21] LABS: ALKALINE PHOSPHATASE 52 U/L (45-117); BILIRUBIN,TOTAL 0.5 mg/dL (0.2-1.0); TOTAL PROTEIN 5.6 g/dL (6.4-8.2)
[2018-06-29] MEDS: LEVOTHYROXINE 75 MCG TABLET PO SCH (06:24)
[2018-06-29 06:58] LABS: BASOPHILS # (AUTO) 0.06 x10^3/uL (0-0.1); BASOPHILS % (AUTO) 0 % (0-1); EOSINOPHILS # (AUTO) 0.08 x10^3/uL (0-0.4); EOSINOPHILS % (AUTO) 1 % (1-7); LYMPHOCYTES # (AUTO) 1.59 x10^3/uL (1-3.4); LYMPHOCYTES % (AUTO) 11 % (22-44); MD SCAN; MONOCYTES % (AUTO) 6 % (2-9); NEUTROPHILS # (AUTO) 12.45 x10^3/uL (1.8-6.8); NEUTROPHILS % (AUTO) 83 % (42-75)
[2018-06-29 07:06] VITALS: BP 114/65
[2018-06-29] MEDS ORDERED: PHARMACY MAY ADJ FOR RENAL FX MC PRN (07:30)
[2018-06-29] MEDS ORDERED: HEPARIN 5,000 UNITS/ML, 1ML SQ SCH (08:00)
[2018-06-29] MEDS ORDERED: HEPARIN 5,000 UNITS/ML, 1ML ONE (08:23)
[2018-06-29] MEDS ORDERED: OXYcodone IR 5MG TABLET PO PRN (08:30)
[2018-06-29] MEDS: MULTIVITAMIN 1 TABLET PO SCH (08:30)
[2018-06-29] MEDS: ALLOPURINOL 100 MG TABLET PO SCH (08:31)
[2018-06-29] MEDS: FERROUS SULFATE 325 MG TABLET PO SCH (08:31)
[2018-06-29] MEDS: CYANOCOBALOMIN 100MCG TABLET PO SCH (08:31)
[2018-06-29] MEDS ORDERED: OXYcodone IR 5MG TABLET PO SCH (09:00)
[2018-06-29] MEDS ORDERED: CITALOPRAM 20 MG TABLET PO SCH (09:00)
[2018-06-29] MEDS ORDERED: FLUDROCORTISONE 0.1 MG TABLET PO SCH ×2 (09:00→21:00)
[2018-06-29] MEDS ORDERED: ALLOPURINOL 300 MG TABLET PO SCH (09:00)
[2018-06-29 12:54] VITALS: BP 141/74
[2018-06-29] MEDS ORDERED: SODIUM CHLORIDE 0.9% 1,000ML IVBOLUS ONE (15:00)
[2018-06-29] MEDS ORDERED: DO NOT GIVE HEPARIN BOLUS MC SCH (16:30)
[2018-06-29 17:16] VITALS: BP 104/65
[2018-06-29] MEDS: HEPARIN 25,000 UNITS/500ML PMX 500 ML IV PRN (17:29)
[2018-06-29 21:12] VITALS: BP 101/65
[2018-06-29] MEDS: GABAPENTIN 300 MG CAPSULE PO SCH (21:21)
[2018-06-29] MEDS: ATORVASTATIN 20 MG TABLET PO SCH (21:21)
[2018-06-29] MEDS: PRAMIPEXOLE 0.125MG TABLET PO SCH (21:21)
[2018-06-29] MEDS: SODIUM CHLORIDE 0.9% 1,000 ML IV SCH (21:37)
[2018-06-30 00:36] VITALS: BP 103/64
[2018-06-30 04:00] VITALS: BP 123/62
[2018-06-30 05:42] LABS: BASOPHILS # (AUTO) 0.09 x10^3/uL (0-0.1); BASOPHILS % (AUTO) 1 % (0-1); EOSINOPHILS # (AUTO) 0.18 x10^3/uL (0-0.4); EOSINOPHILS % (AUTO) 1 % (1-7); LYMPHOCYTES # (AUTO) 1.44 x10^3/uL (1-3.4); LYMPHOCYTES % (AUTO) 10 % (22-44); MD NO; MEAN CORPUSCULAR HEMOGLOBIN 31.7 pg (27.5-34.5); MEAN CORPUSCULAR VOLUME 96.1 fL (81-97); MEAN PLATELET VOLUME 8.8 fL (7.4-10.4); MONOCYTES # (AUTO) 0.94 x10^3/uL (0.2-0.8); MONOCYTES % (AUTO) 7 % (2-9); NEUTROPHILS # (AUTO) 11.85 x10^3/uL (1.8-6.8); NEUTROPHILS % (AUTO) 82 % (42-75); PLATELET COUNT 328 x10^3/uL (130-400); RED BLOOD COUNT 2.81 x10^6/uL (4.38-5.82); RED CELL DISTRIBUTION WIDTH 16.3 % (9.4-14.8)
[2018-06-30] MEDS: PIPERACILLIN/TAZO/PMX 3.375GM 50 ML IV SCH ×4 (05:42→23:37)
[2018-06-30] MEDS: LEVOTHYROXINE 75 MCG TABLET PO SCH (05:42)
[2018-06-30] MEDS: SODIUM CHLORIDE 0.9% 1,000 ML IV SCH (05:42)
[2018-06-30 05:47] LABS: CALCIUM 7.3 mg/dL (8.5-10.1); CHLORIDE 109 mmol/L (98-107)
[2018-06-30 05:52] LABS: ALANINE AMINOTRANSFERASE 31 U/L (12-78); ALKALINE PHOSPHATASE 49 U/L (45-117); ANION GAP 10 mmol/L (5-15); BILIRUBIN,TOTAL 0.4 mg/dL (0.2-1.0); TOTAL PROTEIN 5.4 g/dL (6.4-8.2)
[2018-06-30 08:00] VITALS: BP 113/73
[2018-06-30] MEDS ORDERED: SODIUM CHLORIDE 0.9% 1,000 ML IV SCH (08:30)
[2018-06-30] MEDS: MULTIVITAMIN 1 TABLET PO SCH (09:35)
[2018-06-30] MEDS: CYANOCOBALOMIN 100MCG TABLET PO SCH (09:35)
[2018-06-30] MEDS: OXYcodone IR 5MG TABLET PO PRN ×3 (09:35→22:10)
[2018-06-30] MEDS: FERROUS SULFATE 325 MG TABLET PO SCH (09:35)
[2018-06-30] MEDS: ALLOPURINOL 100 MG TABLET PO SCH (09:35)
[2018-06-30 10:42] VITALS: BP 99/62
[2018-06-30] MEDS ORDERED: LIDOCAINE-MPF 1%, 2ML ONE (12:32)
[2018-06-30 14:20] VITALS: BP 118/69
[2018-06-30] MEDS: GABAPENTIN 300 MG CAPSULE PO SCH (22:11)
[2018-06-30] MEDS: ATORVASTATIN 20 MG TABLET PO SCH (22:11)
[2018-06-30] MEDS: PRAMIPEXOLE 0.125MG TABLET PO SCH (22:11)
[2018-06-30 22:20] VITALS: BP 108/62
[2018-07-01 01:22] VITALS: BP 113/66
[2018-07-01 04:34] LABS: BASOPHILS # (AUTO) 0.05 x10^3/uL (0-0.1); BASOPHILS % (AUTO) 0 % (0-1); EOSINOPHILS % (AUTO) 2 % (1-7); LYMPHOCYTES # (AUTO) 1.71 x10^3/uL (1-3.4); LYMPHOCYTES % (AUTO) 13 % (22-44); MD NO; MEAN CORPUSCULAR HEMOGLOBIN 31.8 pg (27.5-34.5); MEAN CORPUSCULAR HGB CONC 33.2 g/dL (33.2-36.2); MEAN CORPUSCULAR VOLUME 95.8 fL (81-97); MEAN PLATELET VOLUME 8.4 fL (7.4-10.4); MONOCYTES # (AUTO) 0.77 x10^3/uL (0.2-0.8); MONOCYTES % (AUTO) 6 % (2-9); NEUTROPHILS # (AUTO) 10.98 x10^3/uL (1.8-6.8); NEUTROPHILS % (AUTO) 80 % (42-75); PLATELET COUNT 333 x10^3/uL (130-400); RED BLOOD COUNT 2.65 x10^6/uL (4.38-5.82); RED CELL DISTRIBUTION WIDTH 15.7 % (9.4-14.8)
[2018-07-01 04:41] LABS: ALANINE AMINOTRANSFERASE 28 U/L (12-78); ANION GAP 10 mmol/L (5-15); CALCIUM 7.3 mg/dL (8.5-10.1); CHLORIDE 108 mmol/L (98-107); CREATININE 2.62 mg/dL (0.7-1.3)
[2018-07-01 04:46] LABS: ALKALINE PHOSPHATASE 46 U/L (45-117); BILIRUBIN,TOTAL 0.4 mg/dL (0.2-1.0); CREATINE KINASE, TOTAL 18 U/L (39-308); TOTAL PROTEIN 5.3 g/dL (6.4-8.2)
[2018-07-01] MEDS: LEVOTHYROXINE 75 MCG TABLET PO SCH (05:36)
[2018-07-01] MEDS: HEPARIN 25,000 UNITS/500ML PMX 500 ML IV PRN ×2 (05:37→22:49)
[2018-07-01] MEDS: PIPERACILLIN/TAZO/PMX 3.375GM 50 ML IV SCH ×4 (05:40→22:50)
[2018-07-01 08:05] VITALS: BP 104/60
[2018-07-01] MEDS ORDERED: SODIUM CHLORIDE 0.9% 1,000 ML IV SCH (08:30)
[2018-07-01] MEDS: MULTIVITAMIN 1 TABLET PO SCH (09:04)
[2018-07-01] MEDS: FERROUS SULFATE 325 MG TABLET PO SCH (09:04)
[2018-07-01] MEDS: CYANOCOBALOMIN 100MCG TABLET PO SCH (09:04)
[2018-07-01] MEDS: ALLOPURINOL 100 MG TABLET PO SCH (09:04)
[2018-07-01 13:37] VITALS: BP 102/62
[2018-07-01 19:58] VITALS: BP 102/65
[2018-07-01] MEDS: ATORVASTATIN 20 MG TABLET PO SCH (19:59)
[2018-07-01] MEDS: GABAPENTIN 300 MG CAPSULE PO SCH (19:59)
[2018-07-01] MEDS: PRAMIPEXOLE 0.125MG TABLET PO SCH (19:59)
[2018-07-01] MEDS: OXYcodone IR 5MG TABLET PO PRN (20:11)
[2018-07-02 00:14] VITALS: BP 112/65
[2018-07-02 02:40] LABS: MEAN CORPUSCULAR VOLUME 93.8 fL (81-97); MEAN PLATELET VOLUME 8.3 fL (7.4-10.4); PLATELET COUNT 345 x10^3/uL (130-400); RED BLOOD COUNT 2.67 x10^6/uL (4.38-5.82); RED CELL DISTRIBUTION WIDTH 15.8 % (9.4-14.8)
[2018-07-02 02:49] LABS: ALBUMIN 1.9 g/dL (3.4-5.0); ANION GAP 9 mmol/L (5-15); CALCIUM 7.9 mg/dL (8.5-10.1); CHLORIDE 109 mmol/L (98-107)
[2018-07-02 02:53] LABS: ALANINE AMINOTRANSFERASE 24 U/L (12-78); ALKALINE PHOSPHATASE 37 U/L (45-117); BILIRUBIN,TOTAL 0.5 mg/dL (0.2-1.0); CREATININE 2.79 mg/dL (0.7-1.3); TOTAL PROTEIN 5.5 g/dL (6.4-8.2)
[2018-07-02 03:36] LABS: BASOPHILS # (AUTO) 0.07 x10^3/uL (0-0.1); BASOPHILS % (AUTO) 1 % (0-1); EOSINOPHILS % (AUTO) 2 % (1-7); LYMPHOCYTES # (AUTO) 1.86 x10^3/uL (1-3.4); LYMPHOCYTES % (AUTO) 15 % (22-44); MD SCAN; MONOCYTES # (AUTO) 0.75 x10^3/uL (0.2-0.8); MONOCYTES % (AUTO) 6 % (2-9); NEUTROPHILS # (AUTO) 9.22 x10^3/uL (1.8-6.8); NEUTROPHILS % (AUTO) 76 % (42-75)
[2018-07-02] MEDS: LEVOTHYROXINE 75 MCG TABLET PO SCH (05:00)
[2018-07-02] MEDS: PIPERACILLIN/TAZO/PMX 3.375GM 50 ML IV SCH ×3 (05:00→22:46)
[2018-07-02 07:24] VITALS: BP 109/68
[2018-07-02] MEDS ORDERED: LIDOCAINE-MPF 2%, 2ML ONE (11:06)
[2018-07-02] MEDS ORDERED: FENTANYL PF 100 MCG/2ML ONE ×2 (11:12)
[2018-07-02] MEDS ORDERED: MIDAZOLAM 1 MG/ML, 5ML ONE ×2 (11:12)
[2018-07-02] MEDS ORDERED: FLUMAZENIL 0.1 MG/1 ML, 5ML ONE (11:12)
[2018-07-02] MEDS ORDERED: NALOXONE 1 MG/ML, 2ML ONE (11:13)
[2018-07-02 13:13] VITALS: BP 110/44
[2018-07-02] MEDS: CYANOCOBALOMIN 100MCG TABLET PO SCH (14:20)
[2018-07-02] MEDS: MULTIVITAMIN 1 TABLET PO SCH (14:20)
[2018-07-02] MEDS: ALLOPURINOL 100 MG TABLET PO SCH (14:21)
[2018-07-02] MEDS: FERROUS SULFATE 325 MG TABLET PO SCH (14:21)
[2018-07-02] MEDS ORDERED: DO NOT GIVE HEPARIN BOLUS MC SCH (19:30)
[2018-07-02] MEDS: ATORVASTATIN 20 MG TABLET PO SCH (20:04)
[2018-07-02] MEDS: PRAMIPEXOLE 0.125MG TABLET PO SCH (20:04)
[2018-07-02] MEDS: GABAPENTIN 300 MG CAPSULE PO SCH (20:04)
[2018-07-02] MEDS: HEPARIN 25,000 UNITS/500ML PMX 500 ML IV PRN (20:06)
[2018-07-02 20:33] VITALS: BP 115/66
[2018-07-03 02:21] LABS: MEAN CORPUSCULAR HEMOGLOBIN 31.8 pg (27.5-34.5); MEAN CORPUSCULAR HGB CONC 33.4 g/dL (33.2-36.2); MEAN PLATELET VOLUME 7.8 fL (7.4-10.4); PLATELET COUNT 362 x10^3/uL (130-400); RED BLOOD COUNT 2.78 x10^6/uL (4.38-5.82); RED CELL DISTRIBUTION WIDTH 15.7 % (9.4-14.8)
[2018-07-03 02:30] VITALS: BP 125/72
[2018-07-03 02:32] LABS: ANION GAP 8 mmol/L (5-15); CALCIUM 7.9 mg/dL (8.5-10.1); CHLORIDE 114 mmol/L (98-107); CREATININE 2.37 mg/dL (0.7-1.3)
[2018-07-03 03:04] LABS: MD SCAN
[2018-07-03 03:05] LABS: BASOPHILS # (AUTO) 0.05 x10^3/uL (0-0.1); BASOPHILS % (AUTO) 1 % (0-1); EOSINOPHILS # (AUTO) 0.25 x10^3/uL (0-0.4); EOSINOPHILS % (AUTO) 2 % (1-7); LYMPHOCYTES # (AUTO) 1.56 x10^3/uL (1-3.4); LYMPHOCYTES % (AUTO) 13 % (22-44); MONOCYTES # (AUTO) 0.75 x10^3/uL (0.2-0.8); MONOCYTES % (AUTO) 6 % (2-9); NEUTROPHILS % (AUTO) 78 % (42-75)
[2018-07-03] MEDS: PIPERACILLIN/TAZO/PMX 3.375GM 50 ML IV SCH ×4 (05:03→22:01)
[2018-07-03] MEDS: LEVOTHYROXINE 75 MCG TABLET PO SCH (05:03)
[2018-07-03 07:39] VITALS: BP 132/73
[2018-07-03] MEDS: MULTIVITAMIN 1 TABLET PO SCH (10:07)
[2018-07-03] MEDS: FERROUS SULFATE 325 MG TABLET PO SCH (10:07)
[2018-07-03] MEDS: ALLOPURINOL 100 MG TABLET PO SCH (10:07)
[2018-07-03] MEDS: CYANOCOBALOMIN 100MCG TABLET PO SCH (10:07)
[2018-07-03] MEDS: HEPARIN 25,000 UNITS/500ML PMX 500 ML IV PRN (11:15)
[2018-07-03] MEDS: OXYcodone IR 5MG TABLET PO PRN (14:17)
[2018-07-03 14:23] VITALS: BP 120/69
[2018-07-03] MEDS: ACETAMINOPHEN 325 MG TABLET PO PRN (19:42)
[2018-07-03 20:00] VITALS: BP 119/68
[2018-07-03] MEDS: ATORVASTATIN 20 MG TABLET PO SCH (20:03)
[2018-07-03] MEDS: GABAPENTIN 300 MG CAPSULE PO SCH (20:03)
[2018-07-03] MEDS: PRAMIPEXOLE 0.125MG TABLET PO SCH (20:03)
[2018-07-04 02:44] VITALS: BP 133/76
[2018-07-04] MEDS: PIPERACILLIN/TAZO/PMX 3.375GM 50 ML IV SCH ×2 (04:17→10:52)
[2018-07-04] MEDS: HEPARIN 25,000 UNITS/500ML PMX 500 ML IV PRN ×2 (04:40→19:02)
[2018-07-04 05:09] LABS: BASOPHILS # (AUTO) 0.07 x10^3/uL (0-0.1); BASOPHILS % (AUTO) 1 % (0-1); EOSINOPHILS # (AUTO) 0.23 x10^3/uL (0-0.4); EOSINOPHILS % (AUTO) 2 % (1-7); LYMPHOCYTES # (AUTO) 2.87 x10^3/uL (1-3.4); LYMPHOCYTES % (AUTO) 26 % (22-44); MD NO; MEAN CORPUSCULAR HEMOGLOBIN 30.9 pg (27.5-34.5); MEAN CORPUSCULAR HGB CONC 32.7 g/dL (33.2-36.2); MEAN CORPUSCULAR VOLUME 94.4 fL (81-97); MEAN PLATELET VOLUME 7.9 fL (7.4-10.4); MONOCYTES # (AUTO) 0.83 x10^3/uL (0.2-0.8); MONOCYTES % (AUTO) 8 % (2-9); NEUTROPHILS # (AUTO) 6.96 x10^3/uL (1.8-6.8); NEUTROPHILS % (AUTO) 64 % (42-75); PLATELET COUNT 367 x10^3/uL (130-400); RED BLOOD COUNT 2.98 x10^6/uL (4.38-5.82)
[2018-07-04] MEDS: LEVOTHYROXINE 75 MCG TABLET PO SCH (05:11)
[2018-07-04 05:19] LABS: ALBUMIN 2.1 g/dL (3.4-5.0); ANION GAP 8 mmol/L (5-15); CALCIUM 8.2 mg/dL (8.5-10.1); CHLORIDE 112 mmol/L (98-107)
[2018-07-04 05:20] LABS: CREATININE 2.25 mg/dL (0.7-1.3)
[2018-07-04 07:02] VITALS: BP 146/65
[2018-07-04] MEDS ORDERED: MAGNESIUM SULFATE PMX 2GM/50ML 50 ML IV ONE ×2 (07:30→16:00)
[2018-07-04] MEDS: OXYcodone IR 5MG TABLET PO PRN ×2 (09:52→22:04)
[2018-07-04] MEDS: FERROUS SULFATE 325 MG TABLET PO SCH (09:53)
[2018-07-04] MEDS: MULTIVITAMIN 1 TABLET PO SCH (09:53)
[2018-07-04] MEDS: CYANOCOBALOMIN 100MCG TABLET PO SCH (09:53)
[2018-07-04] MEDS: ALLOPURINOL 100 MG TABLET PO SCH (09:53)
[2018-07-04 13:03] VITALS: BP 135/72
[2018-07-04] MEDS: PIPERACILLIN/TAZO(ZOSYN) 2.25 GM in NS 50 ML IVPB SCH ×2 (16:43→22:05)
[2018-07-04 19:10] VITALS: BP 121/61
[2018-07-04] MEDS: ATORVASTATIN 20 MG TABLET PO SCH (22:04)
[2018-07-04] MEDS: GABAPENTIN 300 MG CAPSULE PO SCH (22:04)
[2018-07-04] MEDS: PRAMIPEXOLE 0.125MG TABLET PO SCH (22:04)
[2018-07-05 02:00] VITALS: BP 132/69
[2018-07-05] MEDS ORDERED: PINK BISMUTH 87.33 MG/5 ML ORAL SUSP PO PRN (02:00)
[2018-07-05] MEDS: PIPERACILLIN/TAZO(ZOSYN) 2.25 GM in NS 50 ML IVPB SCH ×2 (04:16→11:30)
[2018-07-05] MEDS: LEVOTHYROXINE 75 MCG TABLET PO SCH (05:19)
[2018-07-05] MEDS: OXYcodone IR 5MG TABLET PO PRN ×3 (05:19→23:22)
[2018-07-05 05:24] LABS: ALBUMIN 1.9 g/dL (3.4-5.0); ANION GAP 9 mmol/L (5-15); CALCIUM 8.2 mg/dL (8.5-10.1); CHLORIDE 111 mmol/L (98-107)
[2018-07-05 05:26] LABS: BASOPHILS # (AUTO) 0.02 x10^3/uL (0-0.1); BASOPHILS % (AUTO) 0 % (0-1); CREATININE 1.83 mg/dL (0.7-1.3); EOSINOPHILS % (AUTO) 3 % (1-7); LYMPHOCYTES # (AUTO) 2.54 x10^3/uL (1-3.4); LYMPHOCYTES % (AUTO) 32 % (22-44); MD NO; MEAN CORPUSCULAR HEMOGLOBIN 31.5 pg (27.5-34.5); MEAN CORPUSCULAR HGB CONC 33.4 g/dL (33.2-36.2); MEAN CORPUSCULAR VOLUME 94.3 fL (81-97); MEAN PLATELET VOLUME 7.9 fL (7.4-10.4); MONOCYTES # (AUTO) 0.67 x10^3/uL (0.2-0.8); MONOCYTES % (AUTO) 8 % (2-9); NEUTROPHILS % (AUTO) 57 % (42-75); PLATELET COUNT 314 x10^3/uL (130-400); RED BLOOD COUNT 2.72 x10^6/uL (4.38-5.82); RED CELL DISTRIBUTION WIDTH 15.9 % (9.4-14.8)
[2018-07-05] MEDS ORDERED: POTASSIUM CHLORIDE 20 MEQ TAB.ER.PRT PO ONE ×2 (07:30→11:30)
[2018-07-05] MEDS: MULTIVITAMIN 1 TABLET PO SCH (08:32)
[2018-07-05] MEDS: CYANOCOBALOMIN 100MCG TABLET PO SCH (08:32)
[2018-07-05] MEDS: FERROUS SULFATE 325 MG TABLET PO SCH (08:32)
[2018-07-05] MEDS: ALLOPURINOL 100 MG TABLET PO SCH (08:32)
[2018-07-05 08:46] VITALS: BP 127/66
[2018-07-05] MEDS ORDERED: MAGNESIUM SULFATE PMX 2GM/50ML 50 ML IV ONE (11:00)
[2018-07-05 12:37] LABS: INTERNATIONAL NORMALIZED RATIO 1.17 (0.93-1.1)
[2018-07-05] MEDS: HEPARIN 25,000 UNITS/500ML PMX 500 ML IV PRN (13:14)
[2018-07-05 15:24] VITALS: BP 109/72
[2018-07-05] MEDS: PIPERACILLIN/TAZO/PMX 2.25GM 50 ML IVPB SCH ×2 (17:32→23:10)
[2018-07-05] MEDS ORDERED: WARFARIN 5 MG TABLET PO-COUM SCH (18:00)
[2018-07-05 19:31] VITALS: BP 125/71
[2018-07-05] MEDS: PRAMIPEXOLE 0.125MG TABLET PO SCH (20:45)
[2018-07-05] MEDS: ATORVASTATIN 20 MG TABLET PO SCH (20:46)
[2018-07-05] MEDS: GABAPENTIN 300 MG CAPSULE PO SCH (20:46)
[2018-07-06 00:09] VITALS: BP 128/70
[2018-07-06 04:04] LABS: INTERNATIONAL NORMALIZED RATIO 1.2 (0.93-1.1); PROTHROMBIN TIME 12.3 Seconds (9.6-11.5)
[2018-07-06] MEDS: HEPARIN 25,000 UNITS/500ML PMX 500 ML IV PRN ×2 (04:48→19:32)
[2018-07-06] MEDS: PIPERACILLIN/TAZO/PMX 2.25GM 50 ML IVPB SCH (04:50)
[2018-07-06] MEDS: LEVOTHYROXINE 75 MCG TABLET PO SCH (05:21)
[2018-07-06 07:46] VITALS: BP 134/74
[2018-07-06 09:30] LABS: BASOPHILS # (AUTO) 0.08 x10^3/uL (0-0.1); BASOPHILS % (AUTO) 1 % (0-1); EOSINOPHILS # (AUTO) 0.22 x10^3/uL (0-0.4); EOSINOPHILS % (AUTO) 2 % (1-7); LYMPHOCYTES # (AUTO) 2.33 x10^3/uL (1-3.4); LYMPHOCYTES % (AUTO) 25 % (22-44); MD NO; MEAN CORPUSCULAR HEMOGLOBIN 30.6 pg (27.5-34.5); MEAN CORPUSCULAR VOLUME 92.8 fL (81-97); MONOCYTES % (AUTO) 8 % (2-9); NEUTROPHILS % (AUTO) 64 % (42-75); PLATELET COUNT 317 x10^3/uL (130-400); RED BLOOD COUNT 2.75 x10^6/uL (4.38-5.82); RED CELL DISTRIBUTION WIDTH 15.7 % (9.4-14.8)
[2018-07-06 09:37] LABS: ANION GAP 8 mmol/L (5-15); CALCIUM 8.4 mg/dL (8.5-10.1); CHLORIDE 110 mmol/L (98-107); CREATININE 1.62 mg/dL (0.7-1.3)
[2018-07-06] MEDS: MULTIVITAMIN 1 TABLET PO SCH (10:07)
[2018-07-06] MEDS: CYANOCOBALOMIN 100MCG TABLET PO SCH (10:07)
[2018-07-06] MEDS: FERROUS SULFATE 325 MG TABLET PO SCH (10:07)
[2018-07-06] MEDS: ALLOPURINOL 100 MG TABLET PO SCH (10:07)
[2018-07-06] MEDS: OXYcodone IR 5MG TABLET PO PRN ×2 (10:30→19:59)
[2018-07-06 13:46] VITALS: BP 125/68
[2018-07-06] MEDS ORDERED: WARFARIN 5 MG TABLET PO-COUM ONE (18:00)
[2018-07-06 18:44] VITALS: BP 122/68
[2018-07-06] MEDS: PRAMIPEXOLE 0.125MG TABLET PO SCH (19:58)
[2018-07-06] MEDS: ATORVASTATIN 20 MG TABLET PO SCH (19:58)
[2018-07-06] MEDS: GABAPENTIN 300 MG CAPSULE PO SCH (19:58)
[2018-07-07 01:14] VITALS: BP 125/70
[2018-07-07 05:14] LABS: INTERNATIONAL NORMALIZED RATIO 1.29 (0.93-1.1); PROTHROMBIN TIME 13.3 Seconds (9.6-11.5)
[2018-07-07 05:17] LABS: BASOPHILS # (AUTO) 0.03 x10^3/uL (0-0.1); BASOPHILS % (AUTO) 0 % (0-1); EOSINOPHILS # (AUTO) 0.19 x10^3/uL (0-0.4); EOSINOPHILS % (AUTO) 2 % (1-7); LYMPHOCYTES # (AUTO) 2.55 x10^3/uL (1-3.4); LYMPHOCYTES % (AUTO) 32 % (22-44); MD NO; MEAN CORPUSCULAR HGB CONC 33.1 g/dL (33.2-36.2); MEAN CORPUSCULAR VOLUME 93.7 fL (81-97); MEAN PLATELET VOLUME 8.3 fL (7.4-10.4); MONOCYTES # (AUTO) 0.76 x10^3/uL (0.2-0.8); MONOCYTES % (AUTO) 9 % (2-9); NEUTROPHILS # (AUTO) 4.53 x10^3/uL (1.8-6.8); NEUTROPHILS % (AUTO) 56 % (42-75); PLATELET COUNT 255 x10^3/uL (130-400); RED BLOOD COUNT 2.76 x10^6/uL (4.38-5.82)
[2018-07-07 05:22] LABS: ALBUMIN 1.9 g/dL (3.4-5.0); CALCIUM 8.1 mg/dL (8.5-10.1); CHLORIDE 109 mmol/L (98-107)
[2018-07-07 05:30] LABS: % IRON SATURATION 23 % (20-55); ALANINE AMINOTRANSFERASE 17 U/L (12-78); ALKALINE PHOSPHATASE 33 U/L (45-117); ANION GAP 8 mmol/L (5-15); BILIRUBIN,TOTAL 0.5 mg/dL (0.2-1.0); CREATININE 1.61 mg/dL (0.7-1.3); IRON LEVEL 35 mcg/dL (65-175); TOTAL IRON BINDING CAPACITY 151 mcg/dL (250-450); TOTAL PROTEIN 5.6 g/dL (6.4-8.2)
[2018-07-07] MEDS: LEVOTHYROXINE 75 MCG TABLET PO SCH (05:38)
[2018-07-07] MEDS ORDERED: MAGNESIUM SULFATE PMX 2GM/50ML 50 ML IV ONE (08:00)
[2018-07-07 08:51] VITALS: BP 137/78
[2018-07-07] MEDS: HEPARIN 25,000 UNITS/500ML PMX 500 ML IV PRN ×2 (09:55→23:01)
[2018-07-07] MEDS: MULTIVITAMIN 1 TABLET PO SCH (09:56)
[2018-07-07] MEDS: ALLOPURINOL 100 MG TABLET PO SCH (09:56)
[2018-07-07] MEDS: FERROUS SULFATE 325 MG TABLET PO SCH (09:56)
[2018-07-07] MEDS: CYANOCOBALOMIN 100MCG TABLET PO SCH (09:56)
[2018-07-07] MEDS: OXYcodone IR 5MG TABLET PO PRN ×2 (10:10→20:04)
[2018-07-07 14:46] VITALS: BP 127/61
[2018-07-07] MEDS ORDERED: WARFARIN 7.5 MG TABLET PO-COUM ONE (18:00)
[2018-07-07 19:55] VITALS: BP 106/74
[2018-07-07] MEDS: ATORVASTATIN 20 MG TABLET PO SCH (20:04)
[2018-07-07] MEDS: PRAMIPEXOLE 0.125MG TABLET PO SCH (20:04)
[2018-07-07] MEDS: GABAPENTIN 300 MG CAPSULE PO SCH (20:04)
[2018-07-08 01:08] VITALS: BP 129/76
[2018-07-08] MEDS: OXYcodone IR 5MG TABLET PO PRN ×3 (02:30→21:04)
[2018-07-08 05:40] LABS: BASOPHILS # (AUTO) 0.04 x10^3/uL (0-0.1); BASOPHILS % (AUTO) 1 % (0-1); EOSINOPHILS # (AUTO) 0.15 x10^3/uL (0-0.4); EOSINOPHILS % (AUTO) 2 % (1-7); LYMPHOCYTES # (AUTO) 2.41 x10^3/uL (1-3.4); LYMPHOCYTES % (AUTO) 32 % (22-44); MD NO; MEAN CORPUSCULAR HEMOGLOBIN 31.1 pg (27.5-34.5); MEAN CORPUSCULAR HGB CONC 33.2 g/dL (33.2-36.2); MEAN CORPUSCULAR VOLUME 93.7 fL (81-97); MEAN PLATELET VOLUME 8.6 fL (7.4-10.4); MONOCYTES # (AUTO) 0.73 x10^3/uL (0.2-0.8); MONOCYTES % (AUTO) 10 % (2-9); NEUTROPHILS # (AUTO) 4.25 x10^3/uL (1.8-6.8); NEUTROPHILS % (AUTO) 56 % (42-75); PLATELET COUNT 236 x10^3/uL (130-400); RED BLOOD COUNT 2.87 x10^6/uL (4.38-5.82); RED CELL DISTRIBUTION WIDTH 15.8 % (9.4-14.8)
[2018-07-08 05:42] LABS: INTERNATIONAL NORMALIZED RATIO 1.38 (0.93-1.1); PROTHROMBIN TIME 14.3 Seconds (9.6-11.5)
[2018-07-08 05:50] LABS: ALBUMIN 2.1 g/dL (3.4-5.0); ANION GAP 9 mmol/L (5-15); CALCIUM 8.1 mg/dL (8.5-10.1); CHLORIDE 107 mmol/L (98-107); CREATININE 1.51 mg/dL (0.7-1.3)
[2018-07-08] MEDS: LEVOTHYROXINE 75 MCG TABLET PO SCH (06:33)
[2018-07-08 06:44] VITALS: BP 103/62
[2018-07-08] MEDS: FERROUS SULFATE 325 MG TABLET PO SCH (09:00)
[2018-07-08] MEDS: MULTIVITAMIN 1 TABLET PO SCH (09:00)
[2018-07-08] MEDS: CYANOCOBALOMIN 100MCG TABLET PO SCH (09:00)
[2018-07-08] MEDS: ALLOPURINOL 100 MG TABLET PO SCH (09:00)
[2018-07-08] MEDS: HEPARIN 25,000 UNITS/500ML PMX 500 ML IV PRN (13:12)
[2018-07-08 13:19] VITALS: BP 121/69
[2018-07-08] MEDS ORDERED: WARFARIN 10 MG TABLET PO-COUM ONE (18:00)
[2018-07-08 19:58] VITALS: BP 114/66
[2018-07-08] MEDS: GABAPENTIN 300 MG CAPSULE PO SCH (21:03)
[2018-07-08] MEDS: PRAMIPEXOLE 0.125MG TABLET PO SCH (21:03)
[2018-07-08] MEDS: ATORVASTATIN 20 MG TABLET PO SCH (21:04)
[2018-07-09] MEDS: ACETAMINOPHEN 325 MG TABLET PO PRN (00:59)
[2018-07-09 01:00] VITALS: BP 132/71
[2018-07-09] MEDS: HEPARIN 25,000 UNITS/500ML PMX 500 ML IV PRN (03:20)
[2018-07-09 04:47] LABS: BASOPHILS # (AUTO) 0.04 x10^3/uL (0-0.1); BASOPHILS % (AUTO) 1 % (0-1); EOSINOPHILS # (AUTO) 0.19 x10^3/uL (0-0.4); EOSINOPHILS % (AUTO) 3 % (1-7); LYMPHOCYTES # (AUTO) 2.41 x10^3/uL (1-3.4); LYMPHOCYTES % (AUTO) 36 % (22-44); MD NO; MEAN CORPUSCULAR HGB CONC 33.2 g/dL (33.2-36.2); MEAN CORPUSCULAR VOLUME 93.4 fL (81-97); MEAN PLATELET VOLUME 8.5 fL (7.4-10.4); MONOCYTES # (AUTO) 0.67 x10^3/uL (0.2-0.8); MONOCYTES % (AUTO) 10 % (2-9); NEUTROPHILS # (AUTO) 3.34 x10^3/uL (1.8-6.8); NEUTROPHILS % (AUTO) 50 % (42-75); PLATELET COUNT 231 x10^3/uL (130-400); RED BLOOD COUNT 2.67 x10^6/uL (4.38-5.82); RED CELL DISTRIBUTION WIDTH 16.5 % (9.4-14.8)
[2018-07-09 04:53] LABS: INTERNATIONAL NORMALIZED RATIO 2.18 (0.93-1.1); PROTHROMBIN TIME 22.1 Seconds (9.6-11.5)
[2018-07-09 05:01] LABS: ALBUMIN 2.1 g/dL (3.4-5.0); ANION GAP 11 mmol/L (5-15); CALCIUM 8.3 mg/dL (8.5-10.1); CHLORIDE 109 mmol/L (98-107)
[2018-07-09 05:05] LABS: ALANINE AMINOTRANSFERASE 16 U/L (12-78); ALKALINE PHOSPHATASE 36 U/L (45-117); BILIRUBIN,TOTAL 0.3 mg/dL (0.2-1.0); CREATININE 1.55 mg/dL (0.7-1.3); TOTAL PROTEIN 5.8 g/dL (6.4-8.2)
[2018-07-09] MEDS: OXYcodone IR 5MG TABLET PO PRN ×2 (05:06→15:55)
[2018-07-09] MEDS: LEVOTHYROXINE 75 MCG TABLET PO SCH (05:06)
[2018-07-09 07:18] VITALS: BP 136/74
[2018-07-09] MEDS: ALLOPURINOL 100 MG TABLET PO SCH (09:05)
[2018-07-09] MEDS: FERROUS SULFATE 325 MG TABLET PO SCH (09:06)
[2018-07-09] MEDS: MULTIVITAMIN 1 TABLET PO SCH (09:06)
[2018-07-09] MEDS: CYANOCOBALOMIN 100MCG TABLET PO SCH (09:06)
[2018-07-09 12:40] VITALS: BP 116/70
[2018-07-09] MEDS ORDERED: ALLO100T30 PO (13:57)
[2018-07-09] MEDS ORDERED: WARF5TAB PO-COUM (13:57)
[2018-07-09] MEDS ORDERED: WARFARIN 5 MG TABLET PO-COUM ONE (18:00)
== END 2018-07-09 19:35 | disposition home health service (06) | DRG 871 ==
LOC: ED 22:22 → EDIP 22:34 → 5SO 06-29 01:38
PROVIDERS: ADMIT Internal Medicine; ATTEND Internal Medicine
PROC: 0W993ZZ Drainage of Right Pleural Cavity, Percutaneous Approach (ICD-10-PCS; principal; 2018-06-30)
PROC: 0W9D30Z Drainage of Pericardial Cavity with Drainage Device, Percutaneous Approach (ICD-10-PCS; 2018-07-02)
PROC: 0WPDX0Z Removal of Drainage Device from Pericardial Cavity, External Approach (ICD-10-PCS; 2018-07-05)
DX: A41.9 Sepsis, unspecified organism (principal); N17.0 Acute kidney failure with tubular necrosis; J96.01 Acute respiratory failure with hypoxia; E43 Unspecified severe protein-calorie malnutrition; J18.9 Pneumonia, unspecified organism; I31.3 Pericardial effusion (noninflammatory); J98.11 Atelectasis; J90 Pleural effusion, not elsewhere classified; Q60.0 Renal agenesis, unilateral; D64.9 Anemia, unspecified; F32.9 Major depressive disorder, single episode, unspecified; K57.90 Diverticulosis of intestine, part unspecified, without perforation or abscess without bleeding; E03.9 Hypothyroidism, unspecified; E78.00 Pure hypercholesterolemia, unspecified; E78.5 Hyperlipidemia, unspecified; G25.81 Restless legs syndrome; J45.909 Unspecified asthma, uncomplicated; M10.9 Gout, unspecified; N18.3 Chronic kidney disease, stage 3 (moderate); Z98.42 Cataract extraction status, left eye; Z98.41 Cataract extraction status, right eye; Z90.11 Acquired absence of right breast and nipple; Z87.440 Personal history of urinary (tract) infections; Z85.3 Personal history of malignant neoplasm of breast; Z86.718 Personal history of other venous thrombosis and embolism; Z86.73 Personal history of transient ischemic attack (TIA), and cerebral infarction without residual deficits; Z82.49 Family history of ischemic heart disease and other diseases of the circulatory system; Z68.30 Body mass index [BMI] 30.0-30.9, adult; Z79.82 Long term (current) use of aspirin; Z79.899 Other long term (current) drug therapy
CPT/HCPCS: 32555; 36415; 71045; 71046; 71250; 75989; 76000; 80048; 80053; 80069; 81001; 82040; 82306; 82550; 82570; 82728; 82945; 83540; 83550; 83605; 83615; 83735; 83880; 83970; 83986; 84100; 84145; 84157; 84484; 84550; 85025; 85520; 85610; 85651; 87015; 87040; 87070; 87075; 87086; 87116; 87205; 87206; 88112; 88305; 88341; 88342; 89051; 93005; 93308; 93321; 93325; 93970; 96365; 96375; 99156; 99157; J0696; J1644; J2250; J2405; J2543; J3010; J3370; J3490; C1729; C1769; G0461; J2310; J3475; J7030; J7050

== ENCOUNTER 2018-07-18 19:48 | Inpatient (IN) | payer OTHER ==
[~2018-07-18] VITALS: Ht 167.6 cm; Wt 84.3 kg
[~2018-07-18 19:48] MED LIST changes: +WARF5TAB PO-COUM
[2018-07-18 20:56] LABS: BASOPHILS # (AUTO) 0.03 x10^3/uL (0-0.1); BASOPHILS % (AUTO) 0 % (0-1); EOSINOPHILS % (AUTO) 2 % (1-7); LYMPHOCYTES # (AUTO) 2.12 x10^3/uL (1-3.4); LYMPHOCYTES % (AUTO) 25 % (22-44); MD NO; MEAN CORPUSCULAR HEMOGLOBIN 30.7 pg (27.5-34.5); MEAN CORPUSCULAR HGB CONC 33.4 g/dL (33.2-36.2); MEAN CORPUSCULAR VOLUME 92.1 fL (81-97); MEAN PLATELET VOLUME 9.1 fL (7.4-10.4); MONOCYTES # (AUTO) 0.64 x10^3/uL (0.2-0.8); MONOCYTES % (AUTO) 8 % (2-9); NEUTROPHILS # (AUTO) 5.37 x10^3/uL (1.8-6.8); NEUTROPHILS % (AUTO) 64 % (42-75); PLATELET COUNT 322 x10^3/uL (130-400); RED BLOOD COUNT 3.04 x10^6/uL (4.38-5.82); RED CELL DISTRIBUTION WIDTH 16.4 % (9.4-14.8)
[2018-07-18 21:09] LABS: ALANINE AMINOTRANSFERASE 34 U/L (12-78); ALBUMIN 2.4 g/dL (3.4-5.0); ANION GAP 6 mmol/L (5-15); CALCIUM 8.5 mg/dL (8.5-10.1); CHLORIDE 106 mmol/L (98-107)
[2018-07-18 21:11] LABS: ALKALINE PHOSPHATASE 56 U/L (45-117); BILIRUBIN,TOTAL 0.4 mg/dL (0.2-1.0); CREATININE 2.72 mg/dL (0.7-1.3); TOTAL PROTEIN 7.2 g/dL (6.4-8.2)
[2018-07-18 21:46] LABS: MICROSCOPIC INDICATED
[2018-07-18] MEDS ORDERED: FLUD0.1T PO (23:20)
[2018-07-18 23:21] LABS: CHLORIDE,URINE RANDOM 11 mmol/L; POTASSIUM,URINE RANDOM 18 mmol/L; SODIUM,URINE RANDOM 20 mmol/L
[2018-07-18] MEDS ORDERED: ONDANSETRON 2MG/ML, 2ML IVPush PRN (23:30)
[2018-07-18] MEDS ORDERED: ACETAMINOPHEN 325 MG TABLET PO PRN (23:30)
[2018-07-18] MEDS ORDERED: DOCUSATE 100 MG CAPSULE PO PRN (23:30)
[2018-07-18] MEDS ORDERED: PROMETHAZINE 25 MG/ML, 1ML IM PRN (23:30)
[2018-07-18] MEDS ORDERED: LABETALOL 5MG/ML, 20ML IVPush PRN (23:30)
[2018-07-18] MEDS ORDERED: hydrALAzine 20 MG/ML, 1ML IVPush PRN (23:30)
[2018-07-18] MEDS ORDERED: SODIUM CHLORIDE 0.9% 1,000ML IV ONE (23:30)
[2018-07-18] MEDS ORDERED: CEFTRIAXONE 1,000 MG in SODIUM CHLORIDE 0.9% 50 ML IVPB ONE (23:30)
[2018-07-18] MEDS ORDERED: morphine SULFATE 10 MG/ML, 1ML IVPush PRN (23:30)
[2018-07-18] MEDS ORDERED: ONDANSETRON ODT 4 MG PO PRN (23:30)
[2018-07-18] MEDS ORDERED: POLYETHYLENE GLYCOL 17 GM PACKET PO PRN (23:30)
[2018-07-18] MEDS ORDERED: BISACODYL 10 MG SUPP PR PRN (23:30)
[2018-07-18] MEDS ORDERED: CEFTRIAXONE 1,000 MG ONE (23:43)
[2018-07-18] MEDS ORDERED: CEFTRIAXONE PMX 1GM/50ML 50 ML ONE (23:45)
[2018-07-19 00:32] VITALS: BP 135/70
[2018-07-19 00:32] LABS: FREE T4 (FREE THYROXINE) 1.12 ng/dL (0.76-1.46); THYROID STIMULATING HORMONE 4.02 mIU/L (0.358-3.740)
[2018-07-19] MEDS ORDERED: CEFTRIAXONE 1,000 MG in SODIUM CHLORIDE 0.9% 50 ML IV ONE (01:30)
[2018-07-19] MEDS: PRAMIPEXOLE 0.125MG TABLET PO SCH ×2 (02:07→20:37)
[2018-07-19] MEDS: SODIUM CHLORIDE 0.9% 1,000 ML IV SCH ×4 (02:08→20:42)
[2018-07-19] MEDS: ATORVASTATIN 20 MG TABLET PO SCH ×2 (02:08→20:37)
[2018-07-19] MEDS: GABAPENTIN 300 MG CAPSULE PO SCH ×2 (02:08→20:37)
[2018-07-19 03:04] VITALS: BP 131/72
[2018-07-19] MEDS: LEVOTHYROXINE 75 MCG TABLET PO SCH (05:30)
[2018-07-19 06:02] LABS: INTERNATIONAL NORMALIZED RATIO 2.56 (0.93-1.1); PROTHROMBIN TIME 25.9 Seconds (9.6-11.5)
[2018-07-19 06:09] LABS: CALCIUM 7.5 mg/dL (8.5-10.1); CHLORIDE 114 mmol/L (98-107)
[2018-07-19 06:11] LABS: BASOPHILS # (AUTO) 0.03 x10^3/uL (0-0.1); BASOPHILS % (AUTO) 0 % (0-1); EOSINOPHILS # (AUTO) 0.07 x10^3/uL (0-0.4); EOSINOPHILS % (AUTO) 1 % (1-7); LYMPHOCYTES # (AUTO) 2.01 x10^3/uL (1-3.4); LYMPHOCYTES % (AUTO) 23 % (22-44); MD NO; MEAN CORPUSCULAR HEMOGLOBIN 30.5 pg (27.5-34.5); MEAN CORPUSCULAR HGB CONC 33.3 g/dL (33.2-36.2); MEAN CORPUSCULAR VOLUME 91.6 fL (81-97); MEAN PLATELET VOLUME 8.9 fL (7.4-10.4); MONOCYTES # (AUTO) 0.64 x10^3/uL (0.2-0.8); MONOCYTES % (AUTO) 7 % (2-9); NEUTROPHILS # (AUTO) 6.01 x10^3/uL (1.8-6.8); NEUTROPHILS % (AUTO) 69 % (42-75); PLATELET COUNT 271 x10^3/uL (130-400); RED CELL DISTRIBUTION WIDTH 16.6 % (9.4-14.8)
[2018-07-19 06:16] LABS: ALANINE AMINOTRANSFERASE 28 U/L (12-78); ALKALINE PHOSPHATASE 45 U/L (45-117); ANION GAP 8 mmol/L (5-15); BILIRUBIN,TOTAL 0.3 mg/dL (0.2-1.0); CHOL/HDL RATIO 2.2; CHOLESTEROL, TOTAL 66 mg/dL (140-239); CREATININE 1.99 mg/dL (0.7-1.3); HDL CHOL % 45 % (26-37); HDL CHOLESTEROL (DIRECT) 30 mg/dL (40-60); LDL CHOLESTEROL,CALCULATED 20 mg/dL (54-169); LDL/HDL RATIO 0.7 (0.5-3.0); TOTAL PROTEIN 6.1 g/dL (6.4-8.2); TRIGLYCERIDES 80 mg/dL (50-200); VLDL CHOLESTEROL 16 mg/dL (0-25)
[2018-07-19 06:32] LABS: MICROSCOPIC AUTO
[2018-07-19 06:34] LABS: CULTURE INDICATED? YES
[2018-07-19 07:14] VITALS: BP 137/72
[2018-07-19] MEDS ORDERED: CYANOCOBALAMIN PO SCH (09:00)
[2018-07-19] MEDS: FERROUS SULFATE 325 MG TABLET PO SCH (09:51)
[2018-07-19] MEDS: MULTIVITAMINS/MINERALS TABLET PO SCH (09:52)
[2018-07-19] MEDS: ALLOPURINOL 100 MG TABLET PO SCH (09:52)
[2018-07-19] MEDS: FLUDROCORTISONE 0.1 MG TABLET PO SCH ×2 (09:52→20:37)
[2018-07-19] MEDS: CITALOPRAM 20 MG TABLET PO SCH (09:52)
[2018-07-19 13:27] VITALS: BP 120/67
[2018-07-19] MEDS: OXYcodone IR 5MG TABLET PO PRN (14:52)
[2018-07-19] MEDS ORDERED: WARFARIN 3 MG TABLET PO-COUM SCH (18:00)
[2018-07-19 19:36] VITALS: BP 113/63
[2018-07-19] MEDS: CEFTRIAXONE 2 GM in SODIUM CHLORIDE 0.9% 50 ML IV SCH (20:42)
[2018-07-20 00:41] VITALS: BP 163/67
[2018-07-20 05:22] LABS: INTERNATIONAL NORMALIZED RATIO 2.3 (0.93-1.1); PROTHROMBIN TIME 23.3 Seconds (9.6-11.5)
[2018-07-20 05:28] LABS: ANION GAP 7 mmol/L (5-15); CALCIUM 7.9 mg/dL (8.5-10.1); CHLORIDE 115 mmol/L (98-107)
[2018-07-20 05:29] LABS: BASOPHILS # (AUTO) 0.03 x10^3/uL (0-0.1); BASOPHILS % (AUTO) 1 % (0-1); CREATININE 1.29 mg/dL (0.7-1.3); EOSINOPHILS # (AUTO) 0.22 x10^3/uL (0-0.4); EOSINOPHILS % (AUTO) 3 % (1-7); LYMPHOCYTES # (AUTO) 1.63 x10^3/uL (1-3.4); LYMPHOCYTES % (AUTO) 25 % (22-44); MD NO; MEAN CORPUSCULAR HEMOGLOBIN 30.6 pg (27.5-34.5); MEAN CORPUSCULAR HGB CONC 33.2 g/dL (33.2-36.2); MEAN CORPUSCULAR VOLUME 92.2 fL (81-97); MEAN PLATELET VOLUME 8.6 fL (7.4-10.4); MONOCYTES # (AUTO) 0.46 x10^3/uL (0.2-0.8); MONOCYTES % (AUTO) 7 % (2-9); NEUTROPHILS # (AUTO) 4.18 x10^3/uL (1.8-6.8); NEUTROPHILS % (AUTO) 64 % (42-75); PLATELET COUNT 275 x10^3/uL (130-400); RED BLOOD COUNT 2.67 x10^6/uL (4.38-5.82); RED CELL DISTRIBUTION WIDTH 16.8 % (9.4-14.8)
[2018-07-20] MEDS: LEVOTHYROXINE 75 MCG TABLET PO SCH (05:35)
[2018-07-20 07:03] VITALS: BP 157/70
[2018-07-20] MEDS: OXYcodone IR 5MG TABLET PO PRN ×2 (07:53→20:26)
[2018-07-20] MEDS: CYANOCOBALAMIN 1,000 MCG TABLET PO SCH (07:53)
[2018-07-20] MEDS: MULTIVITAMINS/MINERALS TABLET PO SCH (07:53)
[2018-07-20] MEDS: ALLOPURINOL 100 MG TABLET PO SCH (07:53)
[2018-07-20] MEDS: CITALOPRAM 20 MG TABLET PO SCH (07:53)
[2018-07-20] MEDS: FERROUS SULFATE 325 MG TABLET PO SCH (07:53)
[2018-07-20] MEDS: FLUDROCORTISONE 0.1 MG TABLET PO SCH ×2 (07:54→20:27)
[2018-07-20] MEDS: SODIUM CHLORIDE 0.9% 1,000 ML IV SCH (09:30)
[2018-07-20 12:42] VITALS: BP 158/66
[2018-07-20] MEDS ORDERED: WARFARIN 2 MG TABLET PO-COUM SCH (18:00)
[2018-07-20] MEDS ORDERED: MAGNESIUM SULFATE 3 GM in SODIUM CHLORIDE 0.9% 100 ML IV ONE (19:30)
[2018-07-20 19:51] VITALS: BP 138/70
[2018-07-20] MEDS: PRAMIPEXOLE 0.125MG TABLET PO SCH (20:26)
[2018-07-20] MEDS: CEFTRIAXONE 2 GM in SODIUM CHLORIDE 0.9% 50 ML IV SCH (20:26)
[2018-07-20] MEDS: ATORVASTATIN 20 MG TABLET PO SCH (20:27)
[2018-07-20] MEDS: GABAPENTIN 300 MG CAPSULE PO SCH (20:28)
[2018-07-21 01:57] VITALS: BP 123/61
[2018-07-21] MEDS: LEVOTHYROXINE 75 MCG TABLET PO SCH (05:16)
[2018-07-21 06:04] LABS: INTERNATIONAL NORMALIZED RATIO 2.24 (0.93-1.1); PROTHROMBIN TIME 22.7 Seconds (9.6-11.5)
[2018-07-21 06:06] LABS: ALBUMIN 2.3 g/dL (3.4-5.0); ANION GAP 8 mmol/L (5-15); CALCIUM 8.8 mg/dL (8.5-10.1); CHLORIDE 110 mmol/L (98-107); CREATININE 1.33 mg/dL (0.7-1.3)
[2018-07-21 06:08] LABS: MEAN CORPUSCULAR HEMOGLOBIN 29.8 pg (27.5-34.5); MEAN CORPUSCULAR HGB CONC 32.5 g/dL (33.2-36.2); MEAN CORPUSCULAR VOLUME 91.5 fL (81-97); MEAN PLATELET VOLUME 8.6 fL (7.4-10.4); PLATELET COUNT 385 x10^3/uL (130-400); RED BLOOD COUNT 3.19 x10^6/uL (4.38-5.82); RED CELL DISTRIBUTION WIDTH 16.5 % (9.4-14.8)
[2018-07-21 06:40] LABS: BASOPHILS # (AUTO) 0.05 x10^3/uL (0-0.1); BASOPHILS % (AUTO) 1 % (0-1); EOSINOPHILS # (AUTO) 0.49 x10^3/uL (0-0.4); EOSINOPHILS % (AUTO) 7 % (1-7); LYMPHOCYTES # (AUTO) 1.95 x10^3/uL (1-3.4); LYMPHOCYTES % (AUTO) 26 % (22-44); MD SCAN; MONOCYTES # (AUTO) 0.47 x10^3/uL (0.2-0.8); MONOCYTES % (AUTO) 6 % (2-9); NEUTROPHILS # (AUTO) 4.67 x10^3/uL (1.8-6.8); NEUTROPHILS % (AUTO) 61 % (42-75)
[2018-07-21 08:00] VITALS: BP 136/69
[2018-07-21] MEDS: CYANOCOBALAMIN 1,000 MCG TABLET PO SCH (09:31)
[2018-07-21] MEDS: FERROUS SULFATE 325 MG TABLET PO SCH (09:32)
[2018-07-21] MEDS: CITALOPRAM 20 MG TABLET PO SCH (09:32)
[2018-07-21] MEDS: MULTIVITAMINS/MINERALS TABLET PO SCH (09:32)
[2018-07-21] MEDS: OXYcodone IR 5MG TABLET PO PRN ×3 (09:32→20:18)
[2018-07-21] MEDS: ALLOPURINOL 100 MG TABLET PO SCH (09:32)
[2018-07-21] MEDS: FLUDROCORTISONE 0.1 MG TABLET PO SCH ×2 (09:32→20:18)
[2018-07-21 14:08] VITALS: BP 120/66
[2018-07-21] MEDS ORDERED: WARFARIN 5 MG TABLET PO-COUM SCH (18:00)
[2018-07-21] MEDS ORDERED: WARFARIN 2 MG TABLET PO-COUM SCH (18:00)
[2018-07-21] MEDS: CEFTRIAXONE 2 GM in SODIUM CHLORIDE 0.9% 50 ML IV SCH (20:17)
[2018-07-21] MEDS: ATORVASTATIN 20 MG TABLET PO SCH (20:18)
[2018-07-21] MEDS: PRAMIPEXOLE 0.125MG TABLET PO SCH (20:18)
[2018-07-21] MEDS: GABAPENTIN 300 MG CAPSULE PO SCH (20:18)
[2018-07-21 20:53] VITALS: BP 145/75
[2018-07-22 02:00] VITALS: BP 139/73
[2018-07-22 05:55] LABS: BASOPHILS # (AUTO) 0.04 x10^3/uL (0-0.1); BASOPHILS % (AUTO) 1 % (0-1); EOSINOPHILS # (AUTO) 0.52 x10^3/uL (0-0.4); EOSINOPHILS % (AUTO) 7 % (1-7); LYMPHOCYTES # (AUTO) 1.71 x10^3/uL (1-3.4); LYMPHOCYTES % (AUTO) 23 % (22-44); MD NO; MEAN CORPUSCULAR HEMOGLOBIN 30.8 pg (27.5-34.5); MEAN CORPUSCULAR HGB CONC 33.7 g/dL (33.2-36.2); MEAN CORPUSCULAR VOLUME 91.4 fL (81-97); MONOCYTES # (AUTO) 0.66 x10^3/uL (0.2-0.8); MONOCYTES % (AUTO) 9 % (2-9); NEUTROPHILS # (AUTO) 4.62 x10^3/uL (1.8-6.8); NEUTROPHILS % (AUTO) 61 % (42-75); PLATELET COUNT 354 x10^3/uL (130-400); RED BLOOD COUNT 2.86 x10^6/uL (4.38-5.82); RED CELL DISTRIBUTION WIDTH 16.6 % (9.4-14.8)
[2018-07-22 05:56] LABS: INTERNATIONAL NORMALIZED RATIO 2.41 (0.93-1.1); PROTHROMBIN TIME 24.4 Seconds (9.6-11.5)
[2018-07-22 06:01] LABS: ANION GAP 7 mmol/L (5-15); CALCIUM 8.4 mg/dL (8.5-10.1); CHLORIDE 109 mmol/L (98-107); CREATININE 1.23 mg/dL (0.7-1.3)
[2018-07-22 06:07] LABS: HCT (SEDRATE) 26.1 % (39.2-51.8)
[2018-07-22] MEDS: LEVOTHYROXINE 75 MCG TABLET PO SCH (06:32)
[2018-07-22 06:50] VITALS: BP 124/69
[2018-07-22] MEDS: FLUDROCORTISONE 0.1 MG TABLET PO SCH (09:12)
[2018-07-22] MEDS: OXYcodone IR 5MG TABLET PO PRN (09:12)
[2018-07-22] MEDS: FERROUS SULFATE 325 MG TABLET PO SCH (09:12)
[2018-07-22] MEDS: CITALOPRAM 20 MG TABLET PO SCH (09:12)
[2018-07-22] MEDS: CYANOCOBALAMIN 1,000 MCG TABLET PO SCH (09:12)
[2018-07-22] MEDS: ALLOPURINOL 100 MG TABLET PO SCH (09:12)
[2018-07-22] MEDS: MULTIVITAMINS/MINERALS TABLET PO SCH (09:12)
[2018-07-22] MEDS ORDERED: CEPH-368 PO (11:10)
[2018-07-22] MEDS ORDERED: POTASSIUM CHLORIDE 10 MEQ TABLET.ER PO ONE (11:30)
== END 2018-07-22 13:28 | disposition home health service (06) | DRG 683 ==
LOC: ED 21:41 → EDIP 23:51 → 4WST 07-19 00:12
PROVIDERS: ADMIT Internal Medicine; ATTEND Internal Medicine
PROC: 0T9B70Z Drainage of Bladder with Drainage Device, Via Natural or Artificial Opening (ICD-10-PCS; principal; 2018-07-18)
DX: N17.0 Acute kidney failure with tubular necrosis (principal); J90 Pleural effusion, not elsewhere classified; I47.2 Ventricular tachycardia; E44.0 Moderate protein-calorie malnutrition; I31.3 Pericardial effusion (noninflammatory); N10 Acute pyelonephritis; D63.8 Anemia in other chronic diseases classified elsewhere; E03.9 Hypothyroidism, unspecified; E78.5 Hyperlipidemia, unspecified; G25.81 Restless legs syndrome; J45.909 Unspecified asthma, uncomplicated; N18.3 Chronic kidney disease, stage 3 (moderate); N40.1 Benign prostatic hyperplasia with lower urinary tract symptoms; F32.9 Major depressive disorder, single episode, unspecified; K57.90 Diverticulosis of intestine, part unspecified, without perforation or abscess without bleeding; M19.90 Unspecified osteoarthritis, unspecified site; M54.16 Radiculopathy, lumbar region; R33.8 Other retention of urine; Z90.11 Acquired absence of right breast and nipple; Z98.41 Cataract extraction status, right eye; Z98.42 Cataract extraction status, left eye; Z79.01 Long term (current) use of anticoagulants; Z79.899 Other long term (current) drug therapy; Z85.3 Personal history of malignant neoplasm of breast; Z86.718 Personal history of other venous thrombosis and embolism; Z87.440 Personal history of urinary (tract) infections; Z86.73 Personal history of transient ischemic attack (TIA), and cerebral infarction without residual deficits; Z82.49 Family history of ischemic heart disease and other diseases of the circulatory system; Z68.30 Body mass index [BMI] 30.0-30.9, adult
CPT/HCPCS: 36415; 71045; 76770; 80048; 80053; 80061; 81001; 82040; 82436; 82728; 83036; 83540; 83550; 83605; 83690; 83735; 84133; 84300; 84439; 84443; 85025; 85610; 85651; 87040; 87086; 93308; 93321; 93325; 99285; J0696; J3475; J7030

== ENCOUNTER → 2018-08-16 | Outpatient (CLI) | payer OTHER ==
[~2018-08-16] MED LIST changes: +CEPH-368 PO; -SENN1TAB7 PO; +SENN1TAB8 PO
== END | disposition home or self-care (01) ==
LOC: CFH 09:45
PROVIDERS: ATTEND Internal Medicine Cardiovascular Disease
DX: I08.1 Rheumatic disorders of both mitral and tricuspid valves (principal); Z80.3 Family history of malignant neoplasm of breast
CPT/HCPCS: 93306

== ENCOUNTER 2019-06-26 11:09 | Inpatient (IN) | payer MEDICARE, OTHER ==
[~2019-06-26] VITALS: Ht 167.6 cm; Wt 77.0 kg
[~2019-06-26 11:09] MED LIST changes: +ATOR20TA37 PO; -ATOR20TA9 PO; -GABA600T2 PO; +GABA600T7 PO; +LISI1TAB20 PO; -LISI1TAB7 PO; +SENN-177 PO; -SENN1TAB8 PO
--- NOTE | 2019-06-26 11:32 | NUR ---
PT WITH C/O FEELING NAUSEATED, STATES "I JUST CANT WAKE UP, I CANT KEEP MY EYES OPEN" "ALSO MY LEGS ARE SWOLLEN" PT DENIES CP, SOB. PT TO NIBP, CONT PULSE OX.
[2019-06-26] MEDS ORDERED: BUPR100T8 PO (11:39)
--- NOTE | 2019-06-26 12:05 | NUR ---
Lunch Coverage: assumed care of pt for lunch break only. pt resting on gurney in position of comfort. updated on POC. pt made aware that urien sample needed. pt states that he self-caths and that he wants to do it now. urinal given. SO at bedside
--- NOTE | 2019-06-26 12:25 | NUR ---
Lunch Coverage: urien sample collected and sent. lab at bedside to draw
[2019-06-26 12:45] LABS: MICROSCOPIC AUTO
[2019-06-26 12:45] LABS: BASOPHILS # (AUTO) 0.01 x10^3/uL (0-0.1); BASOPHILS % (AUTO) 0 % (0-1); EOSINOPHILS # (AUTO) 0.05 x10^3/uL (0-0.4); EOSINOPHILS % (AUTO) 1 % (1-7); LYMPHOCYTES # (AUTO) 1.09 x10^3/uL (1-3.4); LYMPHOCYTES % (AUTO) 13 % (22-44); MD NO; MEAN CORPUSCULAR HEMOGLOBIN 32.9 pg (27.5-34.5); MEAN CORPUSCULAR HGB CONC 32.5 g/dL (33.2-36.2); MEAN CORPUSCULAR VOLUME 101.4 fL (81-97); MEAN PLATELET VOLUME 9.5 fL (7.4-10.4); MONOCYTES % (AUTO) 5 % (2-9); NEUTROPHILS # (AUTO) 7.13 x10^3/uL (1.8-6.8); NEUTROPHILS % (AUTO) 82 % (42-75); PLATELET COUNT 128 x10^3/uL (130-400); RED BLOOD COUNT 3.77 x10^6/uL (4.38-5.82); RED CELL DISTRIBUTION WIDTH 15.9 % (9.4-14.8)
[2019-06-26 13:01] LABS: ALBUMIN 3.6 g/dL (3.4-5.0); ANION GAP 9 mmol/L (5-15); CALCIUM 8.9 mg/dL (8.5-10.1); CHLORIDE 107 mmol/L (98-107)
[2019-06-26 13:06] LABS: ALANINE AMINOTRANSFERASE 28 U/L (12-78); ALKALINE PHOSPHATASE 49 U/L (45-117); BILIRUBIN,TOTAL 1.2 mg/dL (0.2-1.0); TOTAL PROTEIN 6.7 g/dL (6.4-8.2); TROPONIN I < 0.015 ng/mL (0.000-0.045)
[2019-06-26 13:07] LABS: CULTURE INDICATED? YES
--- NOTE | 2019-06-26 13:30 | NUR ---
PT RESTING ON SAMIR ROJAS NOTED. AT BEDSIDE
[2019-06-26] MEDS ORDERED: SODIUM CHLORIDE 0.9% 1,000 ML IV SCH (14:28)
[2019-06-26] MEDS ORDERED: ONDANSETRON 2MG/ML, 2ML IVPush PRN (14:30)
[2019-06-26] MEDS ORDERED: CEFTRIAXONE PMX 2GM/50ML 50 ML IV SCH (14:30)
[2019-06-26] MEDS ORDERED: hydrALAzine 20 MG/ML, 1ML IVPush PRN (14:30)
[2019-06-26] MEDS ORDERED: HEPARIN 5,000 UNITS/ML, 1ML SQ SCH (14:30)
--- NOTE | 2019-06-26 14:45 | NUR ---
PIV INITIATED. 1ST SET OF BC DRAWN. LAB TO DO SECOND SET. PT TO BE ADMITTED
[2019-06-26 15:10] LABS: HCT (SEDRATE) 34.4 % (39.2-51.8)
--- NOTE | 2019-06-26 15:16 | NUR ---
REPORT CALLED TO KEVIN HERNANDEZ
[2019-06-26] MEDS ORDERED: CEFTRIAXONE PMX 2GM/50ML 50 ML ONE (15:22)
[2019-06-26 15:32] LABS: C-REACTIVE PROTEIN, QUANT 6.5 mg/dL (0.02-0.49)
[2019-06-26] MEDS: ACETAMINOPHEN 325 MG TABLET PO PRN (16:05)
[2019-06-26 16:40] VITALS: BP 135/68
[2019-06-26] MEDS: WARFARIN 3 MG TABLET PO-COUM SCH (18:00)
[2019-06-26] MEDS ORDERED: WARFARIN 5 MG TABLET PO-COUM SCH (18:00)
[2019-06-26 19:36] VITALS: BP 118/66
[2019-06-26] MEDS: ATORVASTATIN 20 MG TABLET PO SCH (20:44)
[2019-06-26] MEDS: GABAPENTIN 300 MG CAPSULE PO SCH (20:44)
[2019-06-26] MEDS: FLUDROCORTISONE 0.1 MG TABLET PO SCH (20:44)
[2019-06-26] MEDS: PRAMIPEXOLE 0.125MG TABLET PO SCH (20:44)
[2019-06-27] MEDS: ACETAMINOPHEN 325 MG TABLET PO PRN ×2 (01:41→20:36)
[2019-06-27 05:27] LABS: MEAN CORPUSCULAR HEMOGLOBIN 32.6 pg (27.5-34.5); MEAN CORPUSCULAR HGB CONC 32.6 g/dL (33.2-36.2); MEAN CORPUSCULAR VOLUME 99.9 fL (81-97); MEAN PLATELET VOLUME 9.9 fL (7.4-10.4); PLATELET COUNT 110 x10^3/uL (130-400); RED BLOOD COUNT 3.43 x10^6/uL (4.38-5.82); RED CELL DISTRIBUTION WIDTH 15.6 % (9.4-14.8)
[2019-06-27 05:35] LABS: INTERNATIONAL NORMALIZED RATIO 3.09 (0.93-1.1); PROTHROMBIN TIME 31.1 Seconds (9.6-11.5)
[2019-06-27 05:39] LABS: ALBUMIN 2.9 g/dL (3.4-5.0); ANION GAP 8 mmol/L (5-15); CALCIUM 8.2 mg/dL (8.5-10.1); CHLORIDE 109 mmol/L (98-107)
[2019-06-27 05:44] LABS: ALANINE AMINOTRANSFERASE 24 U/L (12-78); ALKALINE PHOSPHATASE 40 U/L (45-117); BILIRUBIN,TOTAL 0.6 mg/dL (0.2-1.0); TOTAL PROTEIN 5.8 g/dL (6.4-8.2)
[2019-06-27] MEDS: LEVOTHYROXINE 75 MCG TABLET PO SCH (06:21)
[2019-06-27 06:32] LABS: BASOPHILS # (AUTO) 0.03 x10^3/uL (0-0.1); BASOPHILS % (AUTO) 0 % (0-1); EOSINOPHILS # (AUTO) 0.03 x10^3/uL (0-0.4); EOSINOPHILS % (AUTO) 0 % (1-7); LYMPHOCYTES # (AUTO) 1.23 x10^3/uL (1-3.4); LYMPHOCYTES % (AUTO) 12 % (22-44); MD SCAN; MONOCYTES # (AUTO) 0.78 x10^3/uL (0.2-0.8); MONOCYTES % (AUTO) 8 % (2-9); NEUTROPHILS # (AUTO) 8.05 x10^3/uL (1.8-6.8); NEUTROPHILS % (AUTO) 80 % (42-75)
[2019-06-27 07:56] VITALS: BP 112/69
[2019-06-27] MEDS: CYANOCOBALAMIN 1,000 MCG TABLET PO SCH (08:11)
[2019-06-27] MEDS: BUPROPION SR 100 MG TABLET PO SCH (08:11)
[2019-06-27] MEDS: ALLOPURINOL 100 MG TABLET PO SCH (08:11)
[2019-06-27] MEDS: FLUDROCORTISONE 0.1 MG TABLET PO SCH ×2 (08:11→20:35)
[2019-06-27] MEDS: MULTIVITAMINS/MINERALS TABLET PO SCH (08:11)
[2019-06-27] MEDS ORDERED: OXYcodone IR 5MG TABLET PO SCH (09:00)
[2019-06-27] MEDS ORDERED: DULO20CA18 PO (13:35)
[2019-06-27] MEDS ORDERED: SENN-177 PO (13:40)
[2019-06-27] MEDS ORDERED: ARIP5TAB58 PO (13:49)
[2019-06-27] MEDS ORDERED: SODIUM CHLORIDE 0.9% 1,000 ML IV SCH (14:28)
[2019-06-27] MEDS: OXYcodone IR 5MG TABLET PO PRN (14:38)
[2019-06-27 14:40] VITALS: BP 118/68
[2019-06-27] MEDS: CEFTRIAXONE PMX 2GM/50ML 50 ML IV SCH (15:40)
[2019-06-27] MEDS: WARFARIN 3 MG TABLET PO-COUM SCH (18:03)
[2019-06-27 19:46] VITALS: BP 120/66
[2019-06-27] MEDS: PRAMIPEXOLE 0.125MG TABLET PO SCH (20:35)
[2019-06-27] MEDS: ARIPIPRAZOLE 10 MG TABLET PO SCH (20:36)
[2019-06-27] MEDS: GABAPENTIN 300 MG CAPSULE PO SCH (20:36)
[2019-06-27] MEDS: SENNA/DOCUSATE TABLET PO SCH (20:36)
[2019-06-27] MEDS: ATORVASTATIN 20 MG TABLET PO SCH (20:36)
[2019-06-27] MEDS ORDERED: DOCUSATE 50 MG/5 ML ORAL SOL PO SCH (21:00)
[2019-06-28 02:01] VITALS: BP 125/68
[2019-06-28 05:30] LABS: BASOPHILS # (AUTO) 0.05 x10^3/uL (0-0.1); BASOPHILS % (AUTO) 1 % (0-1); EOSINOPHILS # (AUTO) 0.09 x10^3/uL (0-0.4); EOSINOPHILS % (AUTO) 1 % (1-7); LYMPHOCYTES # (AUTO) 1.12 x10^3/uL (1-3.4); LYMPHOCYTES % (AUTO) 11 % (22-44); MD NO; MEAN CORPUSCULAR HGB CONC 32.1 g/dL (33.2-36.2); MEAN CORPUSCULAR VOLUME 99.7 fL (81-97); MEAN PLATELET VOLUME 9.6 fL (7.4-10.4); MONOCYTES # (AUTO) 0.72 x10^3/uL (0.2-0.8); MONOCYTES % (AUTO) 7 % (2-9); NEUTROPHILS # (AUTO) 8.12 x10^3/uL (1.8-6.8); NEUTROPHILS % (AUTO) 80 % (42-75); PLATELET COUNT 115 x10^3/uL (130-400); RED BLOOD COUNT 3.54 x10^6/uL (4.38-5.82); RED CELL DISTRIBUTION WIDTH 15.9 % (9.4-14.8)
[2019-06-28 05:42] LABS: ANION GAP 7 mmol/L (5-15); CALCIUM 8.3 mg/dL (8.5-10.1); CHLORIDE 108 mmol/L (98-107); CREATININE 1.74 mg/dL (0.7-1.3)
[2019-06-28] MEDS: LEVOTHYROXINE 75 MCG TABLET PO SCH (06:20)
[2019-06-28 06:38] VITALS: BP 125/66
[2019-06-28] MEDS: OXYcodone IR 5MG TABLET PO PRN ×3 (08:58→20:39)
[2019-06-28] MEDS: CYANOCOBALAMIN 1,000 MCG TABLET PO SCH (08:58)
[2019-06-28] MEDS: CITALOPRAM 20 MG TABLET PO SCH (08:58)
[2019-06-28] MEDS: FLUDROCORTISONE 0.1 MG TABLET PO SCH ×2 (08:58→20:39)
[2019-06-28] MEDS: BUPROPION SR 100 MG TABLET PO SCH (08:58)
[2019-06-28] MEDS: MULTIVITAMINS/MINERALS TABLET PO SCH (08:58)
[2019-06-28] MEDS: ALLOPURINOL 100 MG TABLET PO SCH (09:00)
[2019-06-28 12:36] VITALS: BP 104/58
[2019-06-28 16:21] LABS: INTERNATIONAL NORMALIZED RATIO 4.88 (0.93-1.1); PROTHROMBIN TIME 48.2 Seconds (9.6-11.5)
[2019-06-28] MEDS: CEFTRIAXONE PMX 2GM/50ML 50 ML IV SCH (16:37)
[2019-06-28] MEDS: WARFARIN 3 MG TABLET PO-COUM SCH (18:00)
[2019-06-28 18:46] VITALS: BP 123/60
[2019-06-28] MEDS: PRAMIPEXOLE 0.125MG TABLET PO SCH (20:37)
[2019-06-28] MEDS: ATORVASTATIN 20 MG TABLET PO SCH (20:37)
[2019-06-28] MEDS: SENNA/DOCUSATE TABLET PO SCH (20:37)
[2019-06-28] MEDS: ARIPIPRAZOLE 10 MG TABLET PO SCH (20:39)
[2019-06-28] MEDS: GABAPENTIN 300 MG CAPSULE PO SCH (20:40)
[2019-06-29 00:53] VITALS: BP 113/58
[2019-06-29 06:03] LABS: BASOPHILS # (AUTO) 0.02 x10^3/uL (0-0.1); BASOPHILS % (AUTO) 0 % (0-1); EOSINOPHILS # (AUTO) 0.12 x10^3/uL (0-0.4); EOSINOPHILS % (AUTO) 1 % (1-7); LYMPHOCYTES # (AUTO) 1.16 x10^3/uL (1-3.4); LYMPHOCYTES % (AUTO) 14 % (22-44); MD NO; MEAN CORPUSCULAR HGB CONC 32.7 g/dL (33.2-36.2); MEAN CORPUSCULAR VOLUME 100.8 fL (81-97); MEAN PLATELET VOLUME 9.8 fL (7.4-10.4); MONOCYTES # (AUTO) 0.67 x10^3/uL (0.2-0.8); MONOCYTES % (AUTO) 8 % (2-9); NEUTROPHILS # (AUTO) 6.67 x10^3/uL (1.8-6.8); NEUTROPHILS % (AUTO) 77 % (42-75); PLATELET COUNT 128 x10^3/uL (130-400); RED BLOOD COUNT 3.04 x10^6/uL (4.38-5.82); RED CELL DISTRIBUTION WIDTH 15.4 % (9.4-14.8)
[2019-06-29 06:15] LABS: ALBUMIN 2.6 g/dL (3.4-5.0); ANION GAP 6 mmol/L (5-15); CHLORIDE 105 mmol/L (98-107)
[2019-06-29 06:16] LABS: INTERNATIONAL NORMALIZED RATIO 4.81 (0.93-1.1); PROTHROMBIN TIME 47.5 Seconds (9.6-11.5)
[2019-06-29 06:18] LABS: ALANINE AMINOTRANSFERASE 22 U/L (12-78); ALKALINE PHOSPHATASE 36 U/L (45-117); BILIRUBIN,TOTAL 0.3 mg/dL (0.2-1.0); TOTAL PROTEIN 5.7 g/dL (6.4-8.2)
[2019-06-29 07:44] VITALS: BP 105/64
[2019-06-29] MEDS: FLUDROCORTISONE 0.1 MG TABLET PO SCH (10:05)
[2019-06-29] MEDS: MULTIVITAMINS/MINERALS TABLET PO SCH (10:05)
[2019-06-29] MEDS: CITALOPRAM 20 MG TABLET PO SCH (10:05)
[2019-06-29] MEDS: BUPROPION SR 100 MG TABLET PO SCH (10:05)
[2019-06-29] MEDS: OXYcodone IR 5MG TABLET PO PRN (10:05)
[2019-06-29] MEDS: CYANOCOBALAMIN 1,000 MCG TABLET PO SCH (10:05)
[2019-06-29] MEDS: ALLOPURINOL 100 MG TABLET PO SCH (10:06)
[2019-06-29] MEDS ORDERED: CEFD300C37 PO (10:37)
[2019-06-29] MEDS ORDERED: ACID1GRA3 PO (10:37)
[2019-06-29] MEDS ORDERED: WARF2TAB99 PO ×3 (10:37→13:56)
--- NOTE | 2019-06-29 12:26 | NUR ---
REC REGULAR/THIN LIQUIDS; ORANGE SHEET WITH DIET REC AND SWALLOW STRATEGIES POSTED AT BEDSIDE. Addendum: 06/29/19 at 1227 by Anatsasiia JIMENEZ Amended: Links added.
[2019-06-29 14:56] VITALS: BP 93/58
[2019-06-29] MEDS ORDERED: LEVOTHYROXINE 75 MCG TABLET PO SCH (18:00)
== END 2019-06-29 18:05 | disposition home or self-care (01) | DRG 871 ==
LOC: ED 12:30 → SUATTDRO 13:49 → EDIP 14:28 → 3NE 15:38
PROVIDERS: ADMIT Internal Medicine; ATTEND Internal Medicine
PROC: 0T9B70Z Drainage of Bladder with Drainage Device, Via Natural or Artificial Opening (ICD-10-PCS; principal; 2019-06-26)
DX: A41.9 Sepsis, unspecified organism (principal); G93.41 Metabolic encephalopathy; N17.0 Acute kidney failure with tubular necrosis; L03.116 Cellulitis of left lower limb; N39.0 Urinary tract infection, site not specified; B96.20 Unspecified Escherichia coli [E. coli] as the cause of diseases classified elsewhere; B96.89 Other specified bacterial agents as the cause of diseases classified elsewhere; E03.9 Hypothyroidism, unspecified; E78.5 Hyperlipidemia, unspecified; J45.909 Unspecified asthma, uncomplicated; K22.8 Other specified diseases of esophagus; N18.3 Chronic kidney disease, stage 3 (moderate); R13.10 Dysphagia, unspecified; R79.1 Abnormal coagulation profile; Z82.49 Family history of ischemic heart disease and other diseases of the circulatory system; Z85.3 Personal history of malignant neoplasm of breast; Z86.718 Personal history of other venous thrombosis and embolism; Z86.73 Personal history of transient ischemic attack (TIA), and cerebral infarction without residual deficits; Z90.11 Acquired absence of right breast and nipple; Z90.79 Acquired absence of other genital organ(s); F32.9 Major depressive disorder, single episode, unspecified
CPT/HCPCS: 36415; 71045; 74220; 74230; 80048; 80053; 81001; 83605; 83735; 83880; 84100; 84443; 84484; 85025; 85610; 85651; 86140; 87040; 87077; 87086; 87186; 93005; 96374; 99285; G0378; J0696

== ENCOUNTER 2019-11-18 11:06 | Emergency (ER) | payer MEDICARE ==
[~2019-11-18] VITALS: Ht 167.6 cm; Wt 78.0 kg
[~2019-11-18 11:06] MED LIST changes: -ACET-1757 PO; +ACET-2065 PO; +ACID1GRA3 PO; +ARIP5TAB58 PO; +BUPR100T8 PO; +DULO20CA18 PO
--- NOTE | 2019-11-18 11:31 | NUR ---
PT BROUGHT BACK TO ROOM VIA WC.
--- NOTE | 2019-11-18 11:54 | NUR ---
ERP AT NOW.
[2019-11-18] MEDS ORDERED: METHOCARBAMOL 750 MG TABLET ONE (12:14)
[2019-11-18] MEDS ORDERED: methylPREDNISolone SOD SUCC 125 MG/2 ML ONE (12:14)
[2019-11-18] MEDS ORDERED: KETOROLAC 30 MG/1 ML ONE (12:14)
[2019-11-18] MEDS ORDERED: HYDROmorphone 1 MG/ML, 1ML INJ ONE (12:14)
[2019-11-18] MEDS ORDERED: HYDROmorphone 2 MG/ML, 1ML IVPush PRN (12:30)
[2019-11-18] MEDS ORDERED: methylPREDNISolone SOD SUCC 125 MG/2 ML IVPush ONE (12:30)
[2019-11-18] MEDS ORDERED: KETOROLAC 30 MG/1 ML IVPush ONE (12:30)
[2019-11-18] MEDS ORDERED: METHOCARBAMOL 750 MG TABLET PO ONE (12:30)
[2019-11-18 13:45] VITALS: BP 136/62
[2019-11-18] MEDS ORDERED: PROPOFOL 100 ML IV PRN (14:00)
== END 2019-11-18 14:29 | disposition home or self-care (01) ==
LOC: ED 14:28
DX: M54.5 Low back pain (principal); Z72.89 Other problems related to lifestyle; E78.5 Hyperlipidemia, unspecified; E78.00 Pure hypercholesterolemia, unspecified; J45.909 Unspecified asthma, uncomplicated; Z90.10 Acquired absence of unspecified breast and nipple; Z86.39 Personal history of other endocrine, nutritional and metabolic disease
CPT/HCPCS: 72110; 96374; 96375; 99283; J1170; J1885; J2930

== ENCOUNTER → 2020-12-15 | Outpatient (CLI) | payer MEDICARE ==
[~2020-12-15] MED LIST changes: -PANT40TA5 PO; +PANT40TA6 PO; +REGADENOSON 0.4 MG/5 ML SYRINGE ONE; -WARF5TAB PO-COUM; +WARF5TAB2 PO-COUM
== END | disposition home or self-care (01) ==
LOC: CFH 08:03
PROVIDERS: ATTEND Internal Medicine Cardiovascular Disease
DX: Z01.810 Encounter for preprocedural cardiovascular examination (principal); R42 Dizziness and giddiness; I08.8 Other rheumatic multiple valve diseases; Z85.3 Personal history of malignant neoplasm of breast
CPT/HCPCS: 78452; 93017; 93306; A9502; J2785